=== PATIENT | male | born 1940 | race African-American/Black ===

== ENCOUNTER 2016-08-16 22:34 | Emergency (ER) | payer MEDICARE, BC ==
[2016-08-17] MEDS ORDERED: LIDOCAINE 4%/TETRACAINE 0.5%/EPI 0.18% 5 ML TOPICAL SOLN TOP ONE (01:01)
[2016-08-17] MEDS ORDERED: LIDOCAINE 1% INJ (10 MG/ML) 10 ML MDV INJ ONE (01:01)
[2016-08-17] MEDS ORDERED: ACETAMINOPHEN 325 MG TABLET PO ONE (01:29)
[2016-08-17] MEDS ORDERED: DIPH/PERTUSS(ACELL)/TETANUS VAC/PF 0.5 ML SYR (>=10YO) IM ONE (01:29)
--- NOTE | 2016-08-17 01:30 | ER Document Report ---
ED General - General Chief Complaint: Laceration Stated Complaint: LEFT HAND LACERATION Time Seen by Provider: 08/17/16 00:44 Notes: Patient is a 75-year-old male who presents after accidentally starting a body work auto trimmer will having his hand resting on the blade. He sustained lacerations to the second through fifth digits of his left hand. Denies any focal weakness, numbness, or difficulty with flexion or extension of the digits. He is right- hand dominant. Does not a dull, constant, throbbing pain to the affected area. Nothing improves or worsens the pain. He is uncertain of when his last tetanus shot was administered. Denies any history of similar injuries in the past. TRAVEL OUTSIDE OF THE [place] IN LAST 30 DAYS: No - Related Data Allergies/Adverse Reactions: No Known Allergies Allergy (Unverified 09/27/10 09:35) Past Medical History - General Information source: Patient - Social History Smoking Status: Never Smoker Frequency of alcohol use: None Drug Abuse: None Lives with: Alone Family History: Reviewed & Not Pertinent - Past Medical History Cardiac Medical History: Reports: Hx Atrial Fibrillation, Hx Hypertension - contr w/ meds Denies: Hx Coronary Artery Disease, Hx Heart Attack Pulmonary Medical History: Reports: Hx Asthma - 10 yrs ago Denies: Hx Bronchitis, Hx COPD, Hx Pneumonia, Hx Tuberculosis Neurological Medical History: Denies: Hx Cerebrovascular Accident, Hx Seizures Renal/ Medical History: Denies: Hx Peritoneal Dialysis GI Medical History: Reports: Hx Hiatal Hernia Musculoskeltal Medical History: Reports Hx Arthritis Infectious Medical History: Past Surgical History: Reports: Hx Herniorrhaphy, Hx Thyroid Surgery - Thyroid removed. Denies: Hx Pacemaker - Immunizations Hx Diphtheria, Pertussis, Tetanus Vaccination: No Review of Systems - Review of Systems Notes: Constitutional: Negative for fever. Eyes: Negative for visual changes. ENT: Negative for facial injury Cardiovascular: Negative for chest injury. Respiratory: Negative for shortness of breath. Gastrointestinal: Negative for abdominal injury. Genitourinary: Negative for genital injury Musculoskeletal: Negative for back injury. Skin: Positive for laceration/abrasions. Neurological: Negative for head injury. Physical Exam - Vital signs Vitals: Temp Pulse Resp BP Pulse Ox 97.8 F 64 20 206/94 H 97 08/16/16 22:51 08/16/16 22:51 08/16/16 22:51 08/16/16 22:51 08/16/16 22:51 Interpretation: Hypertensive Notes: PHYSICAL EXAMINATION: GENERAL: Well-appearing, well-nourished and in no acute distress. HEAD: Atraumatic, normocephalic. EYES: sclera anicteric, conjunctiva are normal. ENT: Moist mucous membranes. NECK: Normal range of motion LUNGS: Normal work of breathing HEART: 2+ radial pulses bilaterally EXTREMITIES: Full flexion and extension at the DIP, PIP and MCP of all digits of the left hand. RMU range of motion and sensory distribution is intact. NEUROLOGICAL: No focal neurological deficits. Moves all extremities spontaneously and on command. PSYCH: Normal mood, normal affect. SKIN: Warm, Dry, normal turgor, please see procedure note for laceration descriptions of the second through fifth digits of the left hand Course - Re-evaluation Re-evalutation: 08/17/16 01:29 Patient presents with lacerations over the volar aspect of the second through fifth digits but all require repair. Patient had absolutely no evidence of a neurovascular or tendon injury. Full flexion and extension at the DIP, PIP and MCP of all affected digits. No sensory loss. No additional injuries. Patient' s tetanus was updated. Wounds were cleaned and irrigated and closed. At this time will discharge with return precautions and follow-up recommendations. Verbal discharge instructions given a the bedside and opportunity for questions given. Medication warnings reviewed. Patient is in agreement with this plan and has verbalized understanding of return precautions and the need for primary care follow-up in the next 24-72 hours. - Vital Signs Vital signs: Temp Pulse Resp BP Pulse Ox 97.8 F 64 20 206/94 H 97 08/16/16 22:51 08/16/16 22:51 08/16/16 22:51 08/16/16 22:51 08/16/16 22:51 Procedures - Laceration/Wound Repair Left Hand Wound length (cm): 9 - See documentation Wound's Depth, Shape: Irregular, Contused tissue Laceration pre-procedure: Sterile PPE donned Anesthetic type: 1% Lidocaine Volume Anesthetic (mLs): 5 Wound explored: Contaminated Irrigated w/ Saline (mLs): 1,000 Wound Debrided: Moderate Wound Repaired With: Sutures Suture Size/Type: 5:0, Prolene Number of Sutures: 12 Layer Closure?: No Post-procedure wound care: Sterile dressing applied Post-procedure NV exam normal: Yes Complications: No Notes: 08/17/16 02:36 This is a highly complex laceration repair requiring a total of 40 minutes. Lacerations on the second, third, fourth and fifth digits were repaired after a local block was applied. All wounds were cleaned, irrigated and explored for retained foreign body without evidence of any retained foreign body. First laceration: 1 cm flap type laceration of the volar aspect of the second digit. Closed with 3 stitches Second laceration: 1.5 cm irregular laceration of the volar aspect of the third digit. Closed with 2 stitches Third laceration: 1 cm laceration of the volar aspect of the fourth digit. Closed with 3 stitches fourth laceration: 1.5 cm laceration of the volar aspect of the fifth digit. Closed with 4 stitches. Discharge - Discharge Clinical Impression: Laceration of multiple sites of left hand and fingers Qualifiers: Encounter type: initial encounter Qualified Code(s): S61.412A - Laceration without foreign body of left hand, initial encounter Condition: Good Additional Instructions: Please return to your primary doctor, the ED, or an urgent care in 7 days for suture removal. Return immediately if you develop spreading redness around the wound, pus from the wound, worsening pain, or a fever of >100.4. Keep the area clean and dry. Wash gently with soap and water twice daily and cover with antibiotic ointment. Referrals: KISHA LAZAR MD [Primary Care Provider] - Follow up as needed
[2016-08-17 06:17] VITALS: BP 167/92
== END 2016-08-17 03:20 | disposition home or self-care (01) ==
LOC: ER 22:34
PROC: 0HQGXZZ Repair Left Hand Skin, External Approach (ICD-10-PCS; principal; 2016-08-16)
DX: S61.211A Laceration without foreign body of left index finger without damage to nail, initial encounter (principal); S61.213A Laceration without foreign body of left middle finger without damage to nail, initial encounter; S61.215A Laceration without foreign body of left ring finger without damage to nail, initial encounter; S61.217A Laceration without foreign body of left little finger without damage to nail, initial encounter; W29.3XXA Contact with powered garden and outdoor hand tools and machinery, initial encounter; I10 Essential (primary) hypertension; J45.909 Unspecified asthma, uncomplicated; Z23 Encounter for immunization
CPT/HCPCS: 99283; 90471; 90715; 12004; A9270; J3490

== ENCOUNTER 2016-12-08 16:42 | Emergency (ER) | payer OTHER, MEDICARE ==
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
[2016-12-08] MEDS ORDERED: LIDOCAINE 5% (700 MG) TRANSDERMAL ADH..PATCH TP ONE (17:30)
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
[2016-12-08 18:45] VITALS: BP 177/76
== END 2016-12-08 18:44 | disposition home or self-care (01) ==
LOC: ER 16:42
DX: S16.1XXA Strain of muscle, fascia and tendon at neck level, initial encounter (principal); M54.5 Low back pain; M54.2 Cervicalgia; V43.52XA Car driver injured in collision with other type car in traffic accident, initial encounter; I10 Essential (primary) hypertension; M24.28 Disorder of ligament, vertebrae; I48.91 Unspecified atrial fibrillation; Z79.01 Long term (current) use of anticoagulants; J45.909 Unspecified asthma, uncomplicated
CPT/HCPCS: 70450; 72110; 72125; 99284

== ENCOUNTER 2018-05-23 11:32 | Day surgery (SDC) | payer MEDICARE, BC ==
[2018-05-18 11:45] LABS: HEMOGLOBIN 12.4 g/dL (13.5-17.0); MEAN CORPUSCULAR HEMOGLOBIN 27.5 pg (27.0-33.4); MEAN CORPUSCULAR HGB CONC 34.3 g/dL (32.0-36.0); MEAN CORPUSCULAR VOLUME 80 fl (80-97); PLATELET COUNT 213 10^3/uL (150-450); RED BLOOD COUNT 4.49 10^6/uL (4.35-5.55); WHITE BLOOD COUNT 2.8 10^3/uL (4.0-10.5)
[2018-05-18 12:06] LABS: ANION GAP 9 (5-19); BLOOD UREA NITROGEN 16 mg/dL (7-20); CALCIUM 9.4 mg/dL (8.4-10.2); CARBON DIOXIDE 30 mmol/L (22-30); CHLORIDE 101 mmol/L (98-107); GLUCOSE 83 mg/dL (75-110); SODIUM 139.9 mmol/L (137-145)
--- NOTE | 2018-05-18 13:22 | EKG REPORT ---
SEVERITY:- ABNORMAL ECG - ATRIAL-PACED COMPLEXES PROBABLE LEFT ATRIAL ABNORMALITY LEFT VENTRICULAR HYPERTROPHY : Confirmed by: Armin Garcias MD 18-May-2018 13:20:46
--- NOTE | 2018-05-21 13:18 | RADIOLOGY REPORT (SQ) ---
EXAM DESCRIPTION: CHEST PA/LATERAL COMPLETED DATE/TIME: 05/21/2018 12:37 pm REASON FOR STUDY: PRE OP COMPARISON: 05/10/2013 EXAM PARAMETERS: NUMBER OF VIEWS: two views TECHNIQUE: Digital Frontal and Lateral radiographic views of the chest acquired. RADIATION DOSE: NA LIMITATIONS: none FINDINGS: LUNGS AND PLEURA: No opacities, masses or pneumothorax. No pleural effusion. MEDIASTINUM AND HILAR STRUCTURES: No masses or contour abnormalities. HEART AND VASCULAR STRUCTURES: Heart normal size. No evidence for failure. BONES: No acute findings. HARDWARE: Pacemaker. OTHER: No other significant finding. IMPRESSION: NO SIGNIFICANT RADIOGRAPHIC FINDING IN THE CHEST. TECHNICAL DOCUMENTATION: JOB ID: [id number] [employer]- All Rights Reserved Reading location - IP/workstation name: [email or web address]
[~2018-05-23 11:32] MED LIST: CEFAZOLIN 1 GM/D5W RTU 1 GM/50 ML RTUPB IV ONE; CEFAZOLIN 1 GM/D5W RTU 1 GM/50 ML RTUPB IV PRN; LACTATED RINGERS 1000 ML IV PRN; LIDOCAINE 0.5% INJ-PF (5 MG/ML) 50 ML SDV SUBCUT PRN
[2018-05-23] MEDS ORDERED: BUPIVACAINE INJ/PF LIPOSOME/PF 266 MG/20 ML SDV ONE (12:04)
[2018-05-23] MEDS ORDERED: BUPIVACAINE HCL 0.25 % INJ/PF (2.5 MG/1 ML) 30 ML VIAL ONE (12:04)
[2018-05-23 12:11] LABS: INTERNATIONAL RATION (INR) 1.03
[2018-05-23 12:12] LABS: PARTIAL THROMBOPLASTIN TIME 31.6 SEC (23.5-35.8)
[2018-05-23] MEDS ORDERED: DEXAMETHASONE SOD PHOSPHATE INJ 4 MG/1 ML VIAL ONE (13:34)
[2018-05-23] MEDS ORDERED: FENTANYL CITRATE INJ/PF 100 MCG/2 ML AMPUL ONE ×2 (13:34→16:33)
[2018-05-23] MEDS ORDERED: ONDANSETRON HCL INJ/PF 4 MG/2 ML SDV ONE (13:34)
[2018-05-23] MEDS ORDERED: HYDROMORPHONE HCL INJ/PF 2 MG/ML AMPULE ONE (13:34)
[2018-05-23] MEDS ORDERED: PROMETHAZINE HCL INJ 25 MG/1 ML VIAL ONE (13:34)
[2018-05-23] MEDS ORDERED: MIDAZOLAM 2 MG/2 ML INJ ONE (13:34)
[2018-05-23] MEDS ORDERED: PROPOFOL INJ 200 MG/20 ML VIAL IV ONE (13:34)
[2018-05-23] MEDS ORDERED: EPHEDRINE SULFATE INJ 50 MG/1 ML AMPULE ONE (13:35)
[2018-05-23] MEDS ORDERED: GLYCOPYRROLATE 1 MG/5 ML SYRINGE ONE (13:50)
[2018-05-23] MEDS ORDERED: NEOSTIGMINE METHYLSULFATE 10 MG/10 ML VIAL ONE (13:50)
[2018-05-23] MEDS ORDERED: MORPHINE SULFATE 10 MG/ML INJ IV PRN (14:10)
[2018-05-23] MEDS ORDERED: PROMETHAZINE HCL INJ 25 MG/1 ML VIAL IV PRN ×2 (14:10)
[2018-05-23] MEDS ORDERED: DIPHENHYDRAMINE HCL 50 MG/ML VIAL IV PRN (14:10)
[2018-05-23] MEDS ORDERED: FENTANYL CITRATE INJ/PF 100 MCG/2 ML AMPUL IV PRN ×3 (14:10)
[2018-05-23] MEDS ORDERED: MEPERIDINE HCL/PF INJ 25 MG/1 ML DISP.SYRIN IV PRN (14:10)
[2018-05-23] MEDS ORDERED: OXYCODONE-ACETAMINOPHEN 5-325 MG TABLET PO PRN (15:28)
--- NOTE | 2018-05-23 15:28 | Discharge Summary ---
Discharge Summary (SDC) - Discharge Final Diagnosis: Left inguinal hernia Date of Surgery: 05/23/18 Discharge Date: 05/23/18 Condition: Good Treatment or Instructions: [facility] [address], [place] [address] Discharge Instructions: Open Abdominal Procedures (Hernia, Bowel Surgery) 1.General Information: a. DO NOT DRIVE a car or operative machinery for 1-2 weeks. b. DO NOT consume alcohol, tranquilizers, sleeping medication, or any non- prescribed medication for 24 hours unless approved by your doctor or as long as taking pain medication. c. DO NOT make important decisions or sign any important papers for the first 24 hours after surgery. d. When discharged home the same day as surgery have a responsible person with you the first night. 2.Activity Restriction: 8 weeks; a. Avoid heavy lifting (> 10-15 lbs), straining abdominal muscles and sports, mowing lawn, vacuum commercial cleaner and bending over a lot. b. Walking is important to avoid blood clots in the legs and deep breathing can prevent pneumonia. c. If it fine to go for walks, up and down steps, and ride in a car. 3.Treatment: a. You may shower 24 hours after surgery then daily is fine, but you should not bathe in a tub or go swimming for 2 weeks. You may cover the incision with gauze and tape if it is more comfortable. c. Do not use oils, powders, or lotion on your incision. 4.Medications: a. You may take prescription tablets for pain if needed, one every 6 hours ( _Tramadol_). Do not drive while taking medication c. You may resume all normal medications unless a change is specified by your doctors. 5.Diet: a. If going home the same day as surgery start with clear liquids, and if you do well then advance to normal foods low inf fat and protein. Smaller portion size may be razo the first night. 6.Notify Physician If: a. Pain is not relieved by pain medication b. Persistent nausea and vomiting c. Chills, fever (above 101) d. Persistent bleeding or swelling at the operative site e. Unable to urinate for 6-8 hours f. Increased redness, drainage, or foul smelling discharge from incision 7. Follow Up Care: a. Please call our office to schedule an appointment with your doctor for 2 weeks. In the event of any postoperative problems or questions you may call our office during business hours or the On-Call surgeon through the waffle machine operator at [facility]. [facility] [phone] [facility] (Ask for the surgeon recreation supervisor) b. I understand the instructions for my postoperative care as described above and a copy has been given to me. Witness Patient/Significant Other Date Prescriptions: Tramadol HCl [Ultram 50 mg Tablet] 50 mg PO Q6HP PRN #20 tab PRN Reason: Referrals: BRIANNA HUI MD [Primary Care Provider] - Discharge Diet: As Tolerated Discharge Activity: Balance Activity w/Rest, No Lifting Over 10 Pounds, No Lifting/Push/Pulling, Walk Frequently Report the Following to Your Physician Immediately: Nausea, Vomiting, Increase in Pain, Fever over 101 Degrees, Unusual Bleeding, Redness, Swelling, Warmth, Drainage-Foul Smelling
--- NOTE | 2018-05-23 15:30 | Operative Report ---
Operative Report PREOPERATIVE DIAGNOSIS: Left inguinal hernia, large, incarcerated POSTOPERATIVE DIAGNOSIS: Same, indirect OPERATION: Left inguinal exploration, herniorrhaphy with large Bard polypropylene mesh prosthesis insertion SURGEON: PITA GONZALEZ REFRIGERATOR GLAZIER: KENDALL ACOSTA ANESTHESIA: GA TISSUE REMOVED OR ALTERED: Cord lipoma; fragments of cremasteric muscles COMPLICATIONS: None ESTIMATED BLOOD LOSS: 30 cc INTRAOPERATIVE FINDINGS: See below PROCEDURE: The patient was seen in the preop holding area where the left inguinal area was marked. He was then taken to the main operating room and general anesthesia was induced. Arms were abducted, left inguinal area, scrotum penis and the entire genitalia were prepped and draped in sterile fashion Surgical plan and surgical timeout were conducted. The partially incarcerated left inguinal hernia was reduced with gentle pr essure. Landmarks were identified, the skin needs 2000 quarter percent Marcaine and a standard left inguinal herniorrhaphy incision was made with a knife, #10 blade. Subcutaneous tissue and Melina's fascia divided as encountered. Deeper tissue anesthetized with quarter percent Marcaine, external oblique aponeurosis opened along direction of its fibers, and the intensive the inguinal canal now a ppreciated. There was a massive hernia sac attached to a cord lipoma, and stretched cremasteric fibers. All of these structures were from each other in a deliberate, intentional fashion. The ilioinguinal nerve was visualized throughout the dissection and preserved. The cord lipoma was from the hernia sac, and was ligated at its base with a 2-0 Vicryl suture. The specimen was disposed of The hernia sac was mobilized from all surrounding structures. It was a very large mouth sac. It was opened and the contents interrogated. The large omentum was stuck down to the sigmoid colon and was taken off using cautery and blunt dissection. A small partial serosal tear was made in the anti-mesenteric side of the sigmoid colon and this was oversewed with a [id number] 3-0 Vicryl suture. There was no evidence of infection or active diverticulitis. The greater omentum was returned to the peritoneal cavity. Of note the posterior peritoneal reflection incorporated the inferior wall of the sigmoid colon. This extent of attachment was significant, and I felt that the best course of action was to simply reduce the sigmoid colon in conjunction with the omentum as a single entity. This was accomplished by first closing the ending in the peritoneal sac with a running 3-0 Vicryl suture, then reducing the sigmoid colon and retroperitoneum into the abdominal cavity. We now cleaned up the floor the inguinal canal. This was a large patulous, indirect hernia, so the defect was lateral to the inferior epigastric vessels. Remaining cremasteric fibers were we had the cord structures and vasculature surrounded with a [place] drain. We now brought onto the field a non- large Bard polypropylene mesh, deployed into the floor the inguinal canal, thereby obliterating the majority of the cavity in the central floor of the canal. It was so to surrounding tissue with 0 PDS suture. The overlay mesh was placed to formally reconstruct the floor the inguinal canal, sewing it to conjoined tendon and Poupart's ligament, with the 2 tails opening around the cord structures laterally to re-create the new internal ring. Approximately 8 sutures were used to secure the overlay mesh. Anatomic structures were returned to their buckland position. The ilioinguinal nerve was preserved throughout the entire operation. The external oblique aponeurosis was closed along direction of its fibers with 2-0 Vicryl suture, Melina's fascia and dermis with 3-0 Vicryl, skin with Dermabond glue. 20 cc of non-diluted Exparel anesthetic was deployed into the subcutaneous tissues. Patient tolerated the procedure well, extubated to recovery room in stable condition.
[2018-05-23] MEDS ORDERED: HYDRALAZINE HCL INJ/PF 20 MG/1 ML SDV ONE (16:12)
[2018-05-23 18:29] VITALS: BP 170/83
== END 2018-05-23 18:25 | disposition home or self-care (01) ==
LOC: OROUT 11:32
PROVIDERS: ATTEND Surgery
DX: K40.90 Unilateral inguinal hernia, without obstruction or gangrene, not specified as recurrent (principal); J45.909 Unspecified asthma, uncomplicated; Z86.711 Personal history of pulmonary embolism; I50.30 Unspecified diastolic (congestive) heart failure; I11.0 Hypertensive heart disease with heart failure; G47.33 Obstructive sleep apnea (adult) (pediatric); Z86.73 Personal history of transient ischemic attack (TIA), and cerebral infarction without residual deficits; I48.91 Unspecified atrial fibrillation; Z79.01 Long term (current) use of anticoagulants; Z95.0 Presence of cardiac pacemaker; Z79.899 Other long term (current) drug therapy; E89.0 Postprocedural hypothyroidism; K40.30 Unilateral inguinal hernia, with obstruction, without gangrene, not specified as recurrent
CPT/HCPCS: 93010; 93005; 36415 ×2; 84132; 85027; 85610; 85730; 80048; 71046; 49507; C1781; J2250; J0690; J3010; J0360; J2550; J2405; J2704; C9290; J3490; 830; J1100; J1170

== ENCOUNTER 2019-05-16 14:34 | Emergency (ER) | payer MEDICARE, BC ==
--- NOTE | 2019-05-16 15:10 | ER Document Report ---
HPI - HPI Time Seen by Provider: 05/16/19 14:37 Quality of pain: No pain Pain Level: Denies Context: Patient presents to the [facility] area stating that he was in the area and wanted to stop by. Patient was redirected here from the emergency department for evaluation. Patient states that he only has nasal congestion symptoms and denies any other problems. Patient denies any chest pain, shortness of breath, fever or cough. Associated Symptoms: Rhinnorhea. denies: Body/muscle aches, Chest pain, Chills, Nonproductive cough, Productive cough, Fever, Headache, Nausea, Vomiting, Sinus pain/drainage, Sore throat Exacerbated by: Denies Relieved by: Denies Similar symptoms previously: Yes Recently seen / treated by doctor: No - ROS ROS below otherwise negative: Yes - CONSTITUTIONAL Constitutional: DENIES: Fever - EENT EENT: REPORTS: Nasal Drainage-Clear. DENIES: Sore Throat, Congestion - NEURO Neurology: DENIES: Headache - CARDIOVASCULAR Cardiovascular: DENIES: Chest pain - RESPIRATORY Respiratory: DENIES: Trouble Breathing, Coughing - GASTROINTESTINAL Gastrointestinal: DENIES: Nausea, Patient vomiting, Diarrhea - DERM Skin Color: Normal Skin Problems: None Past Medical History - General Information source: Patient - Social History Smoking Status: Never Smoker Occupation: none Family History: Reviewed & Not Pertinent - Past Medical History Cardiac Medical History: Reports: Hx Atrial Fibrillation, Hx Congestive Heart Failure, Hx Hypertension Denies: Hx Coronary Artery Disease, Hx Heart Attack Pulmonary Medical History: Reports: Hx Asthma - MILD Denies: Hx Bronchitis, Hx COPD, Hx Pneumonia, Hx Tuberculosis Neurological Medical History: Denies: Hx Cerebrovascular Accident, Hx Seizures Renal/ Medical History: Denies: Hx Peritoneal Dialysis GI Medical History: Reports: Hx Hiatal Hernia Musculoskeletal Medical History: Denies Hx Arthritis Infectious Medical History: Past Surgical History: Reports: Hx Herniorrhaphy, Hx Thyroid Surgery - Thyroid removed. Denies: Hx Pacemaker - Immunizations Hx Diphtheria, Pertussis, Tetanus Vaccination: No Vertical Provider Document - CONSTITUTIONAL Agree With Documented VS: Yes - HR 60, 114/57 96% 97.0, 18 General Appearance: WD/WN, No Apparent Distress Notes: PHYSICAL EXAMINATION: GENERAL: Well-appearing and in no acute distress. HEAD: Atraumatic, normocephalic. EYES: sclera anicteric, conjunctiva are normal. ENT: nares patent. Moist mucous membranes. NECK: Normal range of motion, supple without lymphadenopathy LUNGS: CTAB and equal. No wheezes rales or rhonchi. No increased respiratory effort. HEART: Regular rate and rhythm without murmurs NEUROLOGICAL: Normal speech. PSYCH: Normal mood, normal affect. SKIN: Warm, Dry, normal turgor - INFECTION CONTROL TRAVEL OUTSIDE OF THE [place] IN LAST 30 DAYS: No Course - Re-evaluation Re-evalutation: 05/16/19 15:09 Patient does not present with any symptoms worrisome for the reid virus at this time. Patient does not meet requirements for coronavirus screening as he presently denies any cough, fever, or shortness of breath. Discussed with patient use of his allergy medicine that he presently takes to help with his nasal congestion symptoms. Patient encouraged to present to his primary doctor or the emergency department for any new or worsening symptoms at this time. Patient verbalized understanding and is agreeable with discharge plan of care at this time. Discharge - Discharge Clinical Impression: Nasal congestion Condition: Stable Disposition: HOME, SELF-CARE Additional Instructions: Return immediately for any new or worsening symptoms Followup with your primary care provider, call tomorrow to make a followup appointment Referrals: BRIANNA HUI MD [Primary Care Provider] - Follow up as needed
== END 2019-05-16 15:26 | disposition home or self-care (01) ==
LOC: EDRDC 14:34
DX: R09.81 Nasal congestion (principal); J34.89 Other specified disorders of nose and nasal sinuses; I10 Essential (primary) hypertension; J45.909 Unspecified asthma, uncomplicated
CPT/HCPCS: 99211

== ENCOUNTER 2019-06-16 11:38 | Emergency (ER) | payer MEDICARE, BC ==
--- NOTE | 2019-06-16 11:54 | ER Document Report ---
ED Medical Screen (RME) - General Chief Complaint: Hand Swelling Stated Complaint: LEFT HAND SWOLLEN Time Seen by Provider: 06/16/19 11:48 Primary Care Provider: BRIANNA HUI MD [Primary Care Provider] - Follow up as needed Mode of Arrival: Ambulatory Information source: Patient Notes: 78-year-old male presented to ED for red swollen painful left hand. He states he was trimming hedges with some clippers on Monday and his hand has become more more swollen and painful since then. He has trouble closing his hands. He states he does not have a history of gout that he knows of. Patient is alert oriented respirations regular nonlabored speaking in full sentences. There is no obvious cut but it is warm to the touch. I have greeted and performed a rapid initial assessment of this patient. A comprehensive ED assessment and evaluation of the patient, analysis of test results and completion of medical decision making process will be conducted by an additional ED providers. TRAVEL OUTSIDE OF THE [place] IN LAST 30 DAYS: No - Related Data Allergies/Adverse Reactions: No Known Allergies Allergy (Verified 06/16/19 11:52) Past Medical History - Social History Chew tobacco use (# tins/day): No Frequency of alcohol use: None Drug Abuse: None - Past Medical History Cardiac Medical History: Reports: Hx Atrial Fibrillation, Hx Congestive Heart Failure, Hx Hypertension Denies: Hx Coronary Artery Disease, Hx Heart Attack Pulmonary Medical History: Reports: Hx Asthma - MILD Denies: Hx Bronchitis, Hx COPD, Hx Pneumonia, Hx Tuberculosis Neurological Medical History: Denies: Hx Cerebrovascular Accident, Hx Seizures Renal/ Medical History: Denies: Hx Peritoneal Dialysis GI Medical History: Reports: Hx Hiatal Hernia Musculoskeltal Medical History: Denies Hx Arthritis Infectious Medical History: Past Surgical History: Reports: Hx Herniorrhaphy, Hx Thyroid Surgery - Thyroid removed. Denies: Hx Pacemaker - Immunizations Hx Diphtheria, Pertussis, Tetanus Vaccination: No Physical Exam - Vital signs Vitals: Temp Pulse Resp BP 98.7 F 74 20 148/60 H 06/16/19 11:44 06/16/19 11:44 06/16/19 11:44 06/16/19 11:44 Course - Vital Signs Vital signs: Temp Pulse Resp BP Pulse Ox 98.7 F 74 20 148/60 H 99 06/16/19 11:49 06/16/19 11:44 06/16/19 11:44 06/16/19 11:44 06/16/19 11:49 Doctor's Discharge - Discharge Referrals: BRIANNA HUI MD [Primary Care Provider] - Follow up as needed
[2019-06-16 12:16] LABS: ABSOLUTE BASOPHILS # (AUTO) 0.1 10^3/uL (0.0-0.2); ABSOLUTE EOSINOPHILS # (AUTO) 0.1 10^3/uL (0.0-0.6); ABSOLUTE LYMPHOCYTES (AUTO) 1.1 10^3/uL (0.5-4.7); ABSOLUTE MONOCYTES (AUTO) 0.7 10^3/uL (0.1-1.4); ABSOLUTE NEUT (AUTO) 5.1 10^3/uL (1.7-8.2); BASOPHILS % (AUTO) 0.8 % (0-2); HEMOGLOBIN 12.3 g/dL (13.5-17.0); LYMPHOCYTES % (AUTO) 16.2 % (13-45); MEAN CORPUSCULAR HEMOGLOBIN 27.5 pg (27.0-33.4); MEAN CORPUSCULAR HGB CONC 34.2 g/dL (32.0-36.0); MEAN CORPUSCULAR VOLUME 81 fl (80-97); MONOCYTES % (AUTO) 9.4 % (3-13); PLATELET COUNT 250 10^3/uL (150-450); RED BLOOD COUNT 4.47 10^6/uL (4.35-5.55); RED CELL DISTRIBUTION WIDTH 13.6 % (11.5-14.0); SEGMENTED NEUTROPHILS % (AUTO) 72.6 % (42-78); TOTAL CELLS COUNTED % (AUTO) 100 %
--- NOTE | 2019-06-16 12:17 | RADIOLOGY REPORT (SQ) ---
EXAM DESCRIPTION: HAND LEFT 3 VIEWS IMAGES COMPLETED DATE/TIME: 06/16/2019 12:04 pm REASON FOR STUDY: Pain swelling redness left hand COMPARISON: None. NUMBER OF VIEWS: Three views left hand LIMITATIONS: None. FINDINGS: No fracture. 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 Chondrocalcinosis in the TFCC. Soft tissue swelling over the dorsal hand. No radiopaque foreign body or gas. OTHER: No other significant finding. IMPRESSION: Soft tissue swelling without radiopaque foreign body or fracture. Osteoarthritic change s otherwise. TECHNICAL DOCUMENTATION: JOB ID: [id number] Reading location - IP/workstation name: [email or web address]
[2019-06-16 12:34] LABS: ALBUMIN 4.1 g/dL (3.5-5.0); ALKALINE PHOSPHATASE 57 U/L (38-126); ANION GAP 8 (5-19); ASPARTATE AMINO TRANSFERASE 20 U/L (17-59); BILIRUBIN,TOTAL 0.6 mg/dL (0.2-1.3); BLOOD UREA NITROGEN 25 mg/dL (7-20); CALCIUM 9.5 mg/dL (8.4-10.2); CARBON DIOXIDE 31 mmol/L (22-30); CHLORIDE 98 mmol/L (98-107); GLUCOSE 183 mg/dL (75-110); POTASSIUM 3.8 mmol/L (3.6-5.0); TOTAL PROTEIN 7.2 g/dL (6.3-8.2); URIC ACID 4.6 mg/dL (3.5-8.5)
--- NOTE | 2019-06-16 13:26 | ER Document Report ---
Entered by JAYSON ALCALA SCRIBE 06/16/19 1213 Acting as scribe for:RAYMUNDO PRESTON MD ED Hand/Wrist Injury - General Chief Complaint: Hand Swelling Stated Complaint: LEFT HAND SWOLLEN Time Seen by Provider: 06/16/19 11:48 Primary Care Provider: BRIANNA HUI MD [Primary Care Provider] - Follow up as needed Mode of Arrival: Ambulatory Information source: Patient, [facility] [place] [place] Records Notes: This 78 year old male patient presents to the emergency department today with complaints of left hand swelling for the last four days. Patient reports on Monday06/10/2019, he was trying to cut up some limb branches that were about 1.5 to 2 cm in diameter. He was using a hedge tremor type apparatus and it required considerable amount of pressure to pull the handles outward to close the blades and cut through the limbs. He reports that he developed a pain in the left wrist and hand, that lasted only briefly so he did not think anything of it. The next morning when he got up the left wrist and hand was grossly swollen and painful. Patient states he has had a slight pain in his hand the last few days that well come/go. Patient denies a history of gout. TRAVEL OUTSIDE OF THE [place] IN LAST 30 DAYS: No - Related Data Allergies/Adverse Reactions: No Known Allergies Allergy (Verified 06/16/19 11:52) Past Medical History - General Information source: Patient, [facility] Records - Social History Smoking Status: Never Smoker Cigarette use (# per day): No Chew tobacco use (# tins/day): No Smoking Education Provided: No Frequency of alcohol use: None Drug Abuse: None Occupation: Retired Lives with: Family Family History: Reviewed & Not Pertinent Patient has homicidal ideation: No - Past Medical History Cardiac Medical History: Reports: Hx Atrial Fibrillation, Hx Congestive Heart Failure, Hx Hypertension Pulmonary Medical History: Reports: Hx Asthma - MILD GI Medical History: Reports: Hx Hiatal Hernia Musculoskeletal Medical History: Infectious Medical History: Past Surgical History: Reports: Hx Inguinal Hernia - Left inguinal hernia, Hx Orthopedic Surgery - Left shoulder surgery about 1999, Hx Pacemaker, Hx Thyroid Surgery - Thyroid removed for a thyroid tumor - Immunizations Hx Diphtheria, Pertussis, Tetanus Vaccination: No Review of Systems - Review of Systems Constitutional: No symptoms reported EENT: No symptoms reported Cardiovascular: No symptoms reported Respiratory: No symptoms reported Gastrointestinal: No symptoms reported Genitourinary: No symptoms reported Male Genitourinary: No symptoms reported Musculoskeletal: See HPI, Other - left hand swelling Skin: No symptoms reported Hematologic/Lymphatic: No symptoms reported Neurological/Psychological: No symptoms reported -: Yes All other systems reviewed and negative Physical Exam - Vital signs Vitals: Temp Pulse Resp BP 98.7 F 74 20 148/60 H 06/16/19 11:44 06/16/19 11:44 06/16/19 11:44 06/16/19 11:44 - General General appearance: Appears well In distress: None - HEENT Head: Normocephalic, Atraumatic Eyes: Normal - Respiratory Respiratory status: No respiratory distress - Cardiovascular Rhythm: Regular - Abdominal Inspection: Normal Distension: No distension Bowel sounds: Normal - Extremities General upper extremity: Other General lower extremity: Normal inspection, Nontender, Normal ROM Hand: Other - Left hand is grossly swollen from the wrist to the MCP joints. The hand is soft and not hot to the touch. Most tenderness is over the right wrist where the swelling is firm dorsal and ventral. - Neurological Neuro grossly intact: Yes Cognition: Normal Orientation: AAOx4 - Psychological Associated symptoms: Normal affect, Normal mood - Skin Skin Temperature: Warm Skin Moisture: Dry Skin Color: Normal Course - Re-evaluation Re-evalutation: 06/16/19 13:44 The x-ray shows soft tissue swelling but no bony abnormalities. The white blood cell count is not elevated and does not have a shift that would suggest infection. The uric acid is 4.6, and the CRP is 35.3 The history and examination are quite suspicious for gout. His blood sugar is 183, he does not have a history of diabetes. 06/16/19 14:22 I did discuss the case at length with Dr. Lazar. I will treat him as a suspected gout attack with Shayne single dose of prednisone 60 mg and colchicine 1.2 mg, and he will see him in the office tomorrow at 11 AM. At that time he can check his sugars and decide how to continue to manage this injury. - Vital Signs Vital signs: Temp Pulse Resp BP Pulse Ox 98.7 F 74 20 148/60 H 99 06/16/19 11:49 06/16/19 11:44 06/16/19 11:44 06/16/19 11:44 06/16/19 11:49 - Laboratory Result Diagrams: 06/16/19 12:00 06/16/19 12:00 Laboratory results interpreted by me: 06/16/19 06/16/19 06/16/19 12:00 12:00 12:00 Hgb 12.3 L Hct 36.0 L Carbon Dioxide 31 H BUN 25 H Glucose 183 H C-Reactive Protein 35.3 H - Diagnostic Test Radiology reviewed: Image reviewed, Reports reviewed - X-ray of the left hand and wrist shows soft tissue swelling with osteoarthritis, no other abnormalities. Discharge - Discharge Clinical Impression: Swelling of left wrist, Hyperglycemia Gout attack Qualifiers: Gout site: hand Gout etiology: unspecified cause Laterality: left Qualified Code(s): M10.9 - Gout, unspecified Condition: Stable Disposition: HOME, SELF-CARE Additional Instructions: Gout: You have been diagnosed as possibly having gout. Gout is a problem caused by an excess of uric acid, a natural chemical found in the body. The cause of this disease is unknown. Gout arthritis occurs when crystals of uric acid form in the joints. The big toe is the most common joint involved, but any joint can become affected. Persons with gout may also form uric acid kidney stones, resulting in flank pain and blood in the urine. Nodules of uric acid may form under the skin. The first step of treatment is to decrease the inflammation in the joint with antiinflammatory medication. Medication to lower the uric acid level in the blood may then be prescribed. This medication should be taken regularly, as any sudden change in dosage may provoke an attack of gout. Some foods, such as red meat, can provoke an attack in some gout sufferers. Call the doctor if new symptoms arise, or if you do not improve. You were given prednisone and colchicine in the emergency room. These medications will calm down the inflammation in your wrist and hand. Use the splint to protect the wrist so it does not move. Elevate your hand above your heart all the time in order to help reduce the swelling. Take the pain medication as dispensed this evening if needed. Follow-up with Dr. Lazar in the office tomorrow just before 11 AM. RETURN TO THE EMERGENCY ROOM IF ANY NEW OR WORSENING SYMPTOMS. Referrals: KISHA LAZAR MD [ACTIVE STAFF] - 06/17/19 11:00 am I personally performed the services described in the documentation, reviewed and edited the documentation which was dictated to the scribe in my presence, and it accurately records my words and actions.
[2019-06-16] MEDS ORDERED: PREDNISONE 20 MG TABLET PO ONE (13:52)
[2019-06-16] MEDS ORDERED: HYDROCODONE/ACETAMINOPHEN 5-325 MG (6 TAB/ER DISP) PO PRN (14:20)
[2019-06-16] MEDS ORDERED: COLCHICINE 0.6 MG TABLET PO ONE (14:20)
[2019-06-16 14:55] VITALS: BP 133/67
== END 2019-06-16 14:56 | disposition home or self-care (01) ==
LOC: ER 11:38
DX: M10.9 Gout, unspecified (principal); M19.042 Primary osteoarthritis, left hand; R73.9 Hyperglycemia, unspecified; I10 Essential (primary) hypertension; J45.909 Unspecified asthma, uncomplicated
CPT/HCPCS: 99283; 36415; 84550; 85025; 86140; 80053; 73130; A9270 ×3; J7512

== ENCOUNTER → 2019-11-07 | Outpatient (CLI) | payer MEDICARE, BC ==
--- NOTE | 2019-11-07 14:07 | RADIOLOGY REPORT (SQ) ---
EXAM DESCRIPTION: CHEST PA/LATERAL IMAGES COMPLETED DATE/TIME: 11/07/2019 1:46 pm REASON FOR STUDY: SHORTNESS OF BREATH COMPARISON: 05/21/2018 EXAM PARAMETERS: NUMBER OF VIEWS: two views TECHNIQUE: Digital Frontal and Lateral radiographic views of the chest acquired. RADIATION DOSE: NA LIMITATIONS: none FINDINGS: LUNGS AND PLEURA: No opacities, masses or pneumothorax. No pleural effusion. MEDIASTINUM AND HILAR STRUCTURES: No masses or contour abnormalities. HEART AND VASCULAR STRUCTURES: Heart normal size. No evidence for failure. BONES: No acute findings. HARDWARE: Pacemaker. OTHER: No other significant finding. IMPRESSION: NO SIGNIFICANT RADIOGRAPHIC FINDING IN THE CHEST. TECHNICAL DOCUMENTATION: JOB ID: [id number] 2010 [employer]- All Rights Reserved Reading location - IP/workstation name: [email or web address]
== END ==
LOC: OD 12:10
PROVIDERS: ATTEND Internal Medicine
DX: R06.02 Shortness of breath (principal)
CPT/HCPCS: 71046

== ENCOUNTER → 2020-01-31 | Outpatient (CLI) | payer MEDICARE, BC ==
[2020-01-31 13:18] LABS: ANION GAP 8 (5-19); BLOOD UREA NITROGEN 19 mg/dL (7-20); CALCIUM 9.4 mg/dL (8.4-10.2); CARBON DIOXIDE 31 mmol/L (22-30); CHLORIDE 99 mmol/L (98-107); GLUCOSE 115 mg/dL (75-110); POTASSIUM 3.8 mmol/L (3.6-5.0)
== END ==
LOC: OD 11:38
PROVIDERS: ATTEND Physician Assistant
DX: I50.30 Unspecified diastolic (congestive) heart failure (principal)
CPT/HCPCS: 36415; 80048

== ENCOUNTER 2020-02-24 11:55 | Inpatient (IN) | payer MEDICARE, BC ==
[2020-02-24] MEDS ORDERED: DEXAMETHASONE SOD PHOS INJ 10 MG/1 ML VIAL IV ONE (12:33)
[2020-02-24 12:39] LABS: ABSOLUTE LYMPHOCYTES (AUTO) 0.6 10^3/uL (0.5-4.7); ABSOLUTE MONOCYTES (AUTO) 0.6 10^3/uL (0.1-1.4); ABSOLUTE NEUT (AUTO) 6.3 10^3/uL (1.7-8.2); BASOPHILS % (AUTO) 0.4 % (0-2); HEMATOCRIT 33.9 % (37.9-51.0); HEMOGLOBIN 11.5 g/dL (13.5-17.0); LYMPHOCYTES % (AUTO) 7.7 % (13-45); MEAN CORPUSCULAR HEMOGLOBIN 26.7 pg (27.0-33.4); MEAN CORPUSCULAR HGB CONC 34.1 g/dL (32.0-36.0); MEAN CORPUSCULAR VOLUME 78 fl (80-97); MONOCYTES % (AUTO) 8.3 % (3-13); PLATELET COUNT 288 10^3/uL (150-450); RED BLOOD COUNT 4.33 10^6/uL (4.35-5.55); RED CELL DISTRIBUTION WIDTH 13.5 % (11.5-14.0); SEGMENTED NEUTROPHILS % (AUTO) 83.6 % (42-78); TOTAL CELLS COUNTED % (AUTO) 100 %; WHITE BLOOD COUNT 7.5 10^3/uL (4.0-10.5)
[2020-02-24 12:46] LABS: VENOUS BLOOD HCO3 23.3 mmol/L (20-32); VENOUS BLOOD PCO2 33.7 mmHg (35-63); VENOUS BLOOD PH 7.46 (7.30-7.42)
[2020-02-24 12:50] LABS: ALBUMIN 3.1 g/dL (3.5-5.0); ALKALINE PHOSPHATASE 46 U/L (38-126); ANION GAP 13 (5-19); ASPARTATE AMINO TRANSFERASE 55 U/L (17-59); BILIRUBIN,DIRECT 0.4 mg/dL (0.0-0.4); BILIRUBIN,TOTAL 0.9 mg/dL (0.2-1.3); BLOOD UREA NITROGEN 86 mg/dL (7-20); CALCIUM 8.6 mg/dL (8.4-10.2); CARBON DIOXIDE 26 mmol/L (22-30); CHLORIDE 104 mmol/L (98-107); POTASSIUM 4.5 mmol/L (3.6-5.0); TOTAL PROTEIN 6.1 g/dL (6.3-8.2)
[2020-02-24 12:55] LABS: INTERNATIONAL RATION (INR) 2.41; PROTHROMBIN TIME 26.2 SEC (11.4-15.4)
[2020-02-24 13:01] LABS: FIBRINOGEN 941 mg/dL (209-497)
[2020-02-24 13:05] LABS: GLUCOSE 412 mg/dL (75-110)
[2020-02-24] MEDS ORDERED: INSULIN REG, HUMAN 100 UNIT/ML 3 ML VIAL (PYX) IV ONE (13:26)
[2020-02-24] MEDS ORDERED: NORMAL SALINE 1000 ML 1,000 ML IV ONE (13:26)
--- NOTE | 2020-02-24 13:43 | RADIOLOGY REPORT (SQ) ---
EXAM DESCRIPTION: CHEST SINGLE VIEW IMAGES COMPLETED DATE/TIME: 02/24/2020 1:26 pm REASON FOR STUDY: SOB COMPARISON: PA and lateral views of the chest from 11/07/2019. EXAM PARAMETERS: NUMBER OF VIEWS: One view. TECHNIQUE: An AP view of the chest was obtained. RADIATION DOSE: NA LIMITATIONS: None. FINDINGS: LUNGS AND PLEURA: Bilateral basilar predominant patchy parenchymal opacities. The costoph renic sulci are blunted. There is no pneumothorax. MEDIASTINUM AND HILAR STRUCTURES: No mediastinal or hilar contour abnormality. HEART AND VASCULAR STRUCTURES: The cardiac silhouette and pulmonary vasculature are within normal lin its. BONES: Suture ankles in the proximal right humerus. There is superior subluxation of the humeral hea ds with effacement of the acromiohumeral intervals - correlate for chronic rotator cuff tears. There is osteoarthrosis of the acromioclavicular joints. HARDWARE: Intact left subclavian vein approach transvenous pacemaker. OTHER: Surgical clips that project above the level of the thoracic inlet to the left of midline. IMPRESSION: Bilateral basilar predominant patchy parenchymal opacities and likely small bilateral pl eural effusions. Differential considerations include interstitial edema/ volume overload and multifo souleymane pneumonia. TECHNICAL DOCUMENTATION: JOB ID: [id number] 2010 [employer]- All Rights Reserved Reading location - IP/workstation name: [email or web address]
[2020-02-24] MEDS ORDERED: NORMAL SALINE 1000 ML 1,000 ML IV PRN (13:52)
[2020-02-24] MEDS ORDERED: DEXTROSE 50%-WATER 25 GM/50 ML DISP.SYRIN IV PRN ×2 (14:01)
[2020-02-24] MEDS ORDERED: DEXTROSE 40% GEL 15 GM TUBE PO PRN ×2 (14:01)
[2020-02-24] MEDS ORDERED: GLUCAGON,HUMAN RECOMB 1 MG INJ IM PRN (14:01)
[2020-02-24 14:07] LABS: C-REACTIVE PROTEIN 295.6 mg/L (<10.0)
--- NOTE | 2020-02-24 14:15 | ER Document Report ---
ED General - General Chief Complaint: Shortness Of Breath Stated Complaint: SHORTNESS OF BREATH Time Seen by Provider: 02/24/20 12:03 Primary Care Provider: REJI CARPENTER PA-C [Primary Care Provider] - Follow up as needed Mode of Arrival: Medic Information source: Patient, Emergency Med Personnel TRAVEL OUTSIDE OF THE [place] IN LAST 30 DAYS: No - HPI Notes: Patient comes in complaining of shortness of breath and weakness. Patient has a recent positive Covid test per his outpatient provider. He complains of shortness of breath now that is constant and severe. Is worse with exertion and better with rest. Patient does also have a cough. He has been feeling weak with significant malaise. No known fevers. No vomiting or diarrhea. - Related Data Allergies/Adverse Reactions: No Known Allergies Allergy (Verified 06/16/19 11:52) Home Medications: HCTZ, Certirizine HCL, Montelukast,Dexamethasone, Eliquis, Metoprolol, Spironolactone,Levofloxacin,Amlodipine, Albuterol Inhaler, Nitro Sublingual Past Medical History - General Information source: Patient - Social History Smoking Status: Never Smoker Chew tobacco use (# tins/day): No Frequency of alcohol use: None Drug Abuse: None Family History: Reviewed & Not Pertinent Patient has homicidal ideation: No - Past Medical History Cardiac Medical History: Reports: Hx Atrial Fibrillation, Hx Congestive Heart Failure, Hx Hypertension Denies: Hx Coronary Artery Disease, Hx Heart Attack Pulmonary Medical History: Reports: Hx Asthma - MILD Denies: Hx Bronchitis, Hx COPD, Hx Pneumonia, Hx Tuberculosis Neurological Medical History: Denies: Hx Cerebrovascular Accident, Hx Seizures Renal/ Medical History: Denies: Hx Peritoneal Dialysis GI Medical History: Reports: Hx Hiatal Hernia Musculoskeletal Medical History: Denies Hx Arthritis Infectious Medical History: Past Surgical History: Reports: Hx Herniorrhaphy - left inguinal, Hx Inguinal Hernia - Left inguinal hernia, Hx Orthopedic Surgery - Left shoulder surgery about 1999, Hx Pacemaker, Hx Thyroid Surgery - Thyroid removed for a thyroid tumor - Immunizations Hx Diphtheria, Pertussis, Tetanus Vaccination: No Review of Systems - Review of Systems Constitutional: Malaise, Weakness Cardiovascular: denies: Chest pain, Palpitations Respiratory: Cough, Short of breath -: Yes All other systems reviewed and negative Physical Exam - Vital signs Vitals: Temp 97.7 F 02/24/20 11:56 Interpretation: Hypoxic - General General appearance: Alert In distress: None - HEENT Head: Normocephalic, Atraumatic Eyes: Normal Pupils: PERRL - Respiratory Respiratory status: No respiratory distress Breath sounds: Normal - Cardiovascular Rhythm: Regular Notes: No JVD - Abdominal Inspection: Normal Distension: No distension - Back Back: Normal. No: Scoliosis - Extremities General upper extremity: Normal inspection, Normal color General lower extremity: Normal inspection, Normal color - Neurological Cognition: Confused Orientation: Disoriented to time [place] Coma Scale Eye Opening: Spontaneous [place] Coma Scale Verbal: Confused [place] Coma Scale Motor: Obeys Commands Teddy Coma Scale Total: 14 Speech: Normal Sensory: Normal - Psychological Associated symptoms: Normal affect, Normal mood - Skin Skin Temperature: Warm Skin Moisture: Dry Skin Color: Normal Course - Re-evaluation Re-evalutation: 02/24/20 14:14 Patient presents from home with history of being positive for Covid and now having shortness of breath. Patient is hypoxic on room air. He is approximately 95% on 4 L. Patient's inflammatory markers are also all elevated. In addition his sugar is elevated most likely secondary to the outpatient steroid use. Therefore I have treated him with insulin. Patient also has significantly elevated creatinine compared to baseline and therefore have given a liter of IV fluids. - Vital Signs Vital signs: Temp Pulse Resp BP Pulse Ox 97.7 F 92 02/24/20 11:56 02/24/20 11:57 - Laboratory Results Result Diagrams: 02/24/20 12:18 02/24/20 12:18 Laboratory Results Interpreted: 02/24/20 02/24/20 02/24/20 12:18 12:18 12:18 RBC 4.33 L Hgb 11.5 L Hct 33.9 L MCV 78 L MCH 26.7 L Lymph % (Auto) 7.7 L Seg Neutrophils % 83.6 H PT Fibrinogen D-Dimer VBG pH 7.46 H VBG pCO2 33.7 L BUN 86 H Creatinine 3.43 H Est GFR ( Amer) 21 L Est GFR (MDRD) Non-Af 17 L Glucose 412 H* Lactate Dehydrogenase C-Reactive Protein Total Protein 6.1 L Albumin 3.1 L 02/24/20 02/24/20 02/24/20 12:18 12:18 12:18 RBC Hgb Hct MCV MCH Lymph % (Auto) Seg Neutrophils % PT 26.2 H Fibrinogen 941 H D-Dimer 1.05 H VBG pH VBG pCO2 BUN Creatinine Est GFR ( Amer) Est GFR (MDRD) Non-Af Glucose Lactate Dehydrogenase 427 H C-Reactive Protein 295.6 H Total Protein Albumin Critical Laboratory Results Reviewed: Yes Attending or Supervising Physician who Reviewed Labs: ALCIRA ALTAMIRANO - Radiology Results Critical Radiology Results Reviewed: Yes Attending or Supervising Physician who Reviewed Radiology: ALCIRA ALTAMIRANO - EKG Interpretation by Me Rate: Normal - 90 Rhythm: Other [place]/QRS: Left axis deviation Critical Care Note - Critical Care Note Total time excluding time spent on procedures (mins): 50 Comments: Approximately 50 minutes of critical care time were spent on this patient with hypoxic Covid pneumonia. In addition patient is hyperglycemic with acute renal failure. This time was spent reviewing old records. It is spent talking with workforce management consultant. It was spent reviewing labs and imaging. It was spent doing reassessments. Discharge - Discharge Clinical Impression: Pneumonia due to COVID-19 virus, Hypoxia, Hyperglycemia Acute renal failure (ARF) Qualifiers: Acute renal failure type: unspecified Qualified Code(s): N17.9 - Acute kidney failure, unspecified Condition: Critical Disposition: ADMITTED INPATIENT Admitting Provider: [facility] Unit Admitted: IMCU Referrals: REJI CARPENTER PA-C [Primary Care Provider] - Follow up as needed
[2020-02-24] MEDS ORDERED: CEFTRIAXONE 1 GM/D5W RTU 1 GM/50 ML RTUPB IV SCH (14:30)
[2020-02-24 15:16] LABS: ARTERIAL BLOOD BASE EXCESS 2.7 mmol/L; ARTERIAL BLOOD HCO3 26.9 mmol/L (20-24); ARTERIAL BLOOD O2 SATURATION 93.1 % (94-98); ARTERIAL BLOOD PCO2 39.8 mmHg (35-45); ARTERIAL BLOOD PH 7.45 (7.35-7.45); ARTERIAL BLOOD PO2 63.2 mmHg (80-100); ARTERIAL BLOOD TOTAL CO2 28.1 mmol/L (23-27)
[2020-02-24 15:19] LABS: ARTERIAL BLOOD FIO2 5L
[2020-02-24 15:37] LABS: A TYPE INFLUENZA AG NEGATIVE (NEGATIVE); B INFLUENZA AG NEGATIVE (NEGATIVE)
[2020-02-24] MEDS: AZITHROMYCIN 500 MG in DEXTROSE 5%-WATER 250 ML IV SCH (15:38)
[2020-02-24] MEDS ORDERED: SPIRONOLACTONE 50 MG PO SCH (16:00)
[2020-02-24] MEDS: CHOLECALCIFEROL (D3) 1,000 UNIT (25 MCG) TABLET PO SCH (17:21)
[2020-02-24] MEDS: SPIRONOLACTONE 25 MG TABLET PO SCH (17:28)
[2020-02-24] MEDS: ZINC SULFATE 220 MG CAPSULE PO SCH (17:28)
[2020-02-24] MEDS: MONTELUKAST SODIUM 10 MG TABLET PO SCH (17:29)
[2020-02-24] MEDS: AMLODIPINE BESYLATE 10 MG TABLET PO SCH (17:29)
[2020-02-24] MEDS: ASCORBIC ACID 500 MG TABLET PO SCH ×2 (17:29→18:57)
[2020-02-24] MEDS: METOPROLOL SUCCINATE 50 MG TAB.SR.24H PO SCH (17:29)
[2020-02-24] MEDS: APIXABAN 5 MG TABLET PO SCH ×2 (17:36→18:57)
--- NOTE | 2020-02-24 17:59 | EKG REPORT ---
SEVERITY:- ABNORMAL ECG - VENTRICULAR-PACED RHYTHM PACEMAKER IN VAT MODE : Confirmed by: Radha Elliott MD 24-Feb-2020 17:59:02
[2020-02-24] MEDS: NORMAL SALINE 100 ML with INSULIN REGULAR, HUMAN 100 UNIT IV PRN ×4 (18:07→19:03)
--- NOTE | 2020-02-24 20:19 | PDOC H&P ---
History of Present Illness Admission Date/PCP: 02/24/20 14:50 KISHA LAZAR MD History of Present Illness: VERONICA HELM is a 79 year old male, He has a history of paroxysmal atrial fibrillation, sick sinus syndrome status post pacemaker implantation, he had a positive SARS-CoV-2 test last week outpatient in the office, he was started on dexamethasone.He was advised to go to emergency room if he develops shortness of breath, he came to the emergency room today for evaluation of shortness of breath. In the emergency room a chest x-ray was done that demonstrated diffuse bilateral infiltrate, the arterial blood gas that was done demonstrated hypoxemia,ABG on FiO2 5 L, pH 7.45, PO2 33.5, PCO2 39.8, HCO3 26.9.He was also found to have hyperglycemia, serum glucose was over 400 Past Medical History Cardiac Medical History: Reports: Atrial Fibrillation, Hypertension Pulmonary Medical History: Reports: Asthma - MILD GI Medical History: Reports: Hiatal Hernia Musculoskeltal Medical History: Denies: Arthritis Psychiatric Medical History: Denies: Depression Hematology: Reports: Sickle Cell Disease Denies: Anemia Past Surgical History Past Surgical History: Reports: Herniorrhaphy - left inguinal, Orthopedic Surgery - Left shoulder surgery about 1999, Pacemaker Social History Smoking Status: Former Smoker Electronic Cigarette use?: No Frequency of Alcohol Use: None Hx Recreational Drug Use: No Hx Prescription Drug Abuse: No Family History Family History: Reviewed & Not Pertinent Parental Family History Reviewed: Yes Children Family History Reviewed: Yes Sibling(s) Family History Reviewed.: Yes Medication/Allergy Home Medications: Spironolactone [Aldactone] 50 mg PO DAILY 05/11/13 Montelukast Sodium [Singulair] 10 mg PO DAILY 05/18/18 Amlodipine Besylate [Norvasc 10 mg Tablet] 10 mg PO DAILY 02/24/20 Dexamethasone 6 mg PO DAILY 02/24/20 Levofloxacin [Levaquin 750 mg Tablet] 750 mg PO DAILY 02/24/20 Metoprolol Succinate [Toprol Xl 50 mg Tab.sr] 50 mg PO DAILY 02/24/20 Allergies/Adverse Reactions: No Known Allergies Allergy (Verified 06/16/19 11:52) Review of Systems Constitutional: ABSENT: chills, fever(s), headache(s), weight gain, weight loss Eyes: ABSENT: visual disturbances Ears: ABSENT: hearing changes Cardiovascular: PRESENT: dyspnea on exertion Respiratory: PRESENT: cough, dyspnea Gastrointestinal: ABSENT: abdominal pain, constipation, diarrhea, hematemesis, hematochezia, nausea, vomiting Genitourinary: ABSENT: dysuria, hematuria Musculoskeletal: ABSENT: joint swelling Integumentary: ABSENT: rash, wounds Neurological: ABSENT: abnormal gait, abnormal speech, confusion, dizziness, focal weakness, syncope Psychiatric: ABSENT: anxiety, depression, homidical ideation, suicidal ideation Endocrine: ABSENT: cold intolerance, heat intolerance, menstrual abnormalities, polydipsia, polyuria Hematologic/Lymphatic: ABSENT: easy bleeding, easy bruising, lymphadenopathy Physical Exam Vital Signs: Temp Pulse Resp BP Pulse Ox 97.5 F 71 33 H 107/63 94 02/24/20 17:30 02/24/20 19:00 02/24/20 19:15 02/24/20 17:30 02/24/20 19:15 Intake & Output 02/23/20 02/24/20 02/25/20 06:59 06:59 06:59 Intake Total 261 Output Total 300 Balance -39 Weight 64.9 kg General appearance: PRESENT: other - Patient is alert oriented somewhat in distress Head exam: PRESENT: atraumatic, normocephalic Eye exam: PRESENT: PERRLA Ear exam: PRESENT: normal external ear exam Respiratory exam: PRESENT: wheezes Cardiovascular exam: PRESENT: RRR, +S1, +S2 Pulses: PRESENT: normal dorsalis pedis pul, +2 pedal pulses bilateral Vascular exam: PRESENT: normal capillary refill GI/Abdominal exam: PRESENT: normal bowel sounds, soft Rectal exam: PRESENT: deferred Neurological exam: PRESENT: alert, CN II-XII grossly intact Psychiatric exam: PRESENT: appropriate affect, normal mood Skin exam: PRESENT: dry, intact, warm Results Laboratory Results: 02/24/20 12:18 02/24/20 12:18 02/24/20 02/24/20 02/24/20 12:18 12:18 12:18 WBC 7.5 RBC 4.33 L Hgb 11.5 L Hct 33.9 L MCV 78 L MCH 26.7 L MCHC 34.1 RDW 13.5 Plt Count 288 Seg Neutrophils % 83.6 H Carbonic Acid HCO3/H2CO3 Ratio ABG pH ABG pCO2 ABG pO2 ABG HCO3 ABG O2 Saturation ABG Base Excess VBG pH 7.46 H VBG pCO2 33.7 L VBG HCO3 23.3 VBG Base Excess 0 FiO2 Sodium 142.8 Potassium 4.5 Chloride 104 Carbon Dioxide 26 Anion Gap 13 BUN 86 H Creatinine 3.43 H Est GFR ( Amer) 21 L Glucose 412 H* Calcium 8.6 Ferritin Total Bilirubin 0.9 AST 55 Alkaline Phosphatase 46 C-Reactive Protein Total Protein 6.1 L Albumin 3.1 L Blood Type 02/24/20 02/24/20 02/24/20 12:18 14:50 14:53 WBC RBC Hgb Hct MCV MCH MCHC RDW Plt Count Seg Neutrophils % Carbonic Acid 1.20 HCO3/H2CO3 Ratio 22:1 ABG pH 7.45 ABG pCO2 39.8 ABG pO2 63.2 L ABG HCO3 26.9 H ABG O2 Saturation 93.1 L ABG Base Excess 2.7 VBG pH VBG pCO2 VBG HCO3 VBG Base Excess FiO2 5L Sodium Potassium Chloride Carbon Dioxide Anion Gap BUN Creatinine Est GFR ( Amer) Glucose Calcium Ferritin 2050.00 H Total Bilirubin AST Alkaline Phosphatase C-Reactive Protein 295.6 H Total Protein Albumin Blood Type O POSITIVE 02/24/20 02/24/20 12:18 12:18 Creatine Kinase 577 H Troponin I 0.190 Impressions: Chest X-Ray 02/24/20 11:57 IMPRESSION: Bilateral basilar predominant patchy parenchymal opacities and likely small bilateral pleural effusions. Differential considerations include interstitial edema/ volume overload and multifocal pneumonia. Assessment & Plan - Diagnosis (1) Acute hypoxemic respiratory failure Is this a current diagnosis for this admission?: Yes Plan: Start supplementary oxygen,Via nasal cannula (2) Pneumonia Qualifiers: Pneumonia type: due to unspecified organism Laterality: bilateral Lung location: unspecified part of lung Qualified Code(s): J18.9 - Pneumonia, unspecified organism Is this a current diagnosis for this admission?: Yes Plan: Cannot completely rule out bacterial pneumonia, start IV antibiotic (3) Hyperosmolar hyperglycemic state (HHS) Is this a current diagnosis for this admission?: Yes Plan: Start insulin drip with normal saline (4) Pneumonia due to COVID-19 virus Is this a current diagnosis for this admission?: Yes Plan: Start remdesivir, IV dexamethasone - Time Time Spent: Greater than 70 Minutes Critical Time spent with patient: 35 or more minutes Medications reviewed and adjusted accordingly: Yes Anticipated Discharge Disposition: Home, Self Care Anticipated Discharge Timeframe: within 72 hours - Inpatient Certification Based on my medical assessment, after consideration of the patient's comorbidities, presenting symptoms, or acuity I expect that the services needed warrant INPATIENT care.: Yes I certify that my determination is in accordance with my understanding of Medicare's requirements for reasonable and necessary INPATIENT services [42 CFR 412.3e].: Yes
[2020-02-24] MEDS ORDERED: REMDESIVIR 200 MG in NORMAL SALINE 250 ML IV ONE (22:00)
[2020-02-24 22:13] LABS: ANION GAP 8 (5-19); BLOOD UREA NITROGEN 78 mg/dL (7-20); CALCIUM 8.6 mg/dL (8.4-10.2); CARBON DIOXIDE 30 mmol/L (22-30); CHLORIDE 105 mmol/L (98-107); GLUCOSE 343 mg/dL (75-110); POTASSIUM 3.9 mmol/L (3.6-5.0)
[2020-02-24] MEDS: CEFTRIAXONE SODIUM 1,000 MG in DEXTROSE 5%-WATER 50 ML IV SCH (22:21)
[2020-02-24 22:22] LABS: CREATINE KINASE MB 3.49 ng/mL (<4.55); TROPONIN I 0.081 ng/mL
[2020-02-25 01:17] LABS: ANION GAP 11 (5-19); BLOOD UREA NITROGEN 77 mg/dL (7-20); CALCIUM 8.8 mg/dL (8.4-10.2); CARBON DIOXIDE 29 mmol/L (22-30); CHLORIDE 107 mmol/L (98-107); CREATINE KINASE 403 U/L (55-170); GLUCOSE 191 mg/dL (75-110); POTASSIUM 3.6 mmol/L (3.6-5.0)
[2020-02-25 01:36] LABS: CREATINE KINASE MB 3.43 ng/mL (<4.55); TROPONIN I 0.057 ng/mL
[2020-02-25 01:44] LABS: APPEARANCE,URINE SLIGHTLY-CLOUDY; BILIRUBIN,URINE NEGATIVE (NEGATIVE); COLOR,URINE YELLOW; GLUCOSE, URINE >=500 mg/dL (NEGATIVE); KETONES,URINE NEGATIVE (NEGATIVE); LEUKOCYTE ESTERASE,URINE NEGATIVE (NEGATIVE); NITRITE,URINE NEGATIVE (NEGATIVE); PROTEIN,URINE 30 mg/dL (NEGATIVE); URINE SPECIFIC GRAVITY 1.021; UROBILINOGEN,URINE NEGATIVE mg/dL (<2.0)
[2020-02-25 05:35] LABS: ABSOLUTE BASOPHILS # (AUTO) 0.1 10^3/uL (0.0-0.2); ABSOLUTE MONOCYTES (AUTO) 0.4 10^3/uL (0.1-1.4); ABSOLUTE NEUT (AUTO) 7.1 10^3/uL (1.7-8.2); HEMATOCRIT 31.6 % (37.9-51.0); HEMOGLOBIN 10.7 g/dL (13.5-17.0); LYMPHOCYTES % (AUTO) 11.7 % (13-45); MEAN CORPUSCULAR HEMOGLOBIN 26.9 pg (27.0-33.4); MEAN CORPUSCULAR HGB CONC 33.8 g/dL (32.0-36.0); MEAN CORPUSCULAR VOLUME 80 fl (80-97); MONOCYTES % (AUTO) 4.1 % (3-13); PLATELET COUNT 268 10^3/uL (150-450); RED BLOOD COUNT 3.98 10^6/uL (4.35-5.55); SEGMENTED NEUTROPHILS % (AUTO) 83.2 % (42-78); TOTAL CELLS COUNTED % (AUTO) 100 %; WHITE BLOOD COUNT 8.5 10^3/uL (4.0-10.5)
[2020-02-25 07:37] LABS: ANION GAP 9 (5-19); BLOOD UREA NITROGEN 78 mg/dL (7-20); CALCIUM 8.6 mg/dL (8.4-10.2); CARBON DIOXIDE 28 mmol/L (22-30); CHLORIDE 108 mmol/L (98-107); GLUCOSE 171 mg/dL (75-110); POTASSIUM 4.1 mmol/L (3.6-5.0)
[2020-02-25 09:21] LABS: ANION GAP 11 (5-19); BLOOD UREA NITROGEN 80 mg/dL (7-20); CALCIUM 8.6 mg/dL (8.4-10.2); CARBON DIOXIDE 27 mmol/L (22-30); CHLORIDE 107 mmol/L (98-107); GLUCOSE 226 mg/dL (75-110)
[2020-02-25 09:31] LABS: CREATINE KINASE MB 4.32 ng/mL (<4.55); TROPONIN I 0.045 ng/mL
[2020-02-25] MEDS ORDERED: REMDESIVIR 100 MG in NORMAL SALINE 250 ML IV SCH (10:00)
[2020-02-25] MEDS: APIXABAN 5 MG TABLET PO SCH ×2 (10:49→17:03)
[2020-02-25] MEDS: METOPROLOL SUCCINATE 50 MG TAB.SR.24H PO SCH (10:49)
[2020-02-25] MEDS: ZINC SULFATE 220 MG CAPSULE PO SCH (10:49)
[2020-02-25] MEDS: AMLODIPINE BESYLATE 10 MG TABLET PO SCH (10:49)
[2020-02-25] MEDS: SPIRONOLACTONE 25 MG TABLET PO SCH (10:49)
[2020-02-25] MEDS: ASCORBIC ACID 500 MG TABLET PO SCH ×2 (10:49→17:03)
[2020-02-25] MEDS: MONTELUKAST SODIUM 10 MG TABLET PO SCH (10:50)
[2020-02-25] MEDS: DEXAMETHASONE SOD PHOSPHATE INJ 4 MG/1 ML VIAL IV SCH (10:50)
[2020-02-25] MEDS: CEFTRIAXONE SODIUM 1,000 MG in DEXTROSE 5%-WATER 50 ML IV SCH (10:54)
[2020-02-25] MEDS: CHOLECALCIFEROL (D3) 1,000 UNIT (25 MCG) TABLET PO SCH (10:54)
[2020-02-25] MEDS: AZITHROMYCIN 500 MG in DEXTROSE 5%-WATER 250 ML IV SCH (13:21)
[2020-02-25 13:43] LABS: ANION GAP 10 (5-19); BLOOD UREA NITROGEN 80 mg/dL (7-20); CALCIUM 8.3 mg/dL (8.4-10.2); CARBON DIOXIDE 26 mmol/L (22-30); CHLORIDE 107 mmol/L (98-107); GLUCOSE 378 mg/dL (75-110); POTASSIUM 4.1 mmol/L (3.6-5.0)
[2020-02-25] MEDS: INSULIN LISPRO 100 UNIT/ML 3 ML VIAL SUBCUT SCH ×2 (14:23→22:05)
[2020-02-25] MEDS: NORMAL SALINE 1000 ML 1,000 ML IV PRN (14:26)
[2020-02-25] MEDS ORDERED: INSULIN LISPRO 100 UNIT/ML 3 ML VIAL ONE (16:37)
[2020-02-25] MEDS ORDERED: INSULIN GLARGINE,HUM.REC.ANLOG 1,000 UNIT/10 ML VIAL (PYX) SUBCUT ONE ×2 (16:39→17:15)
[2020-02-25 16:47] LABS: ANION GAP 12 (5-19); BLOOD UREA NITROGEN 73 mg/dL (7-20); CALCIUM 8.4 mg/dL (8.4-10.2); CARBON DIOXIDE 26 mmol/L (22-30); CHLORIDE 103 mmol/L (98-107); POTASSIUM 3.7 mmol/L (3.6-5.0)
[2020-02-25 16:58] LABS: GLUCOSE 509 mg/dL (75-110)
[2020-02-25] MEDS ORDERED: INSULIN LISPRO 100 UNIT/ML 3 ML VIAL SUBCUT ONE (17:15)
[2020-02-25 20:40] LABS: ANION GAP 11 (5-19); BLOOD UREA NITROGEN 74 mg/dL (7-20); CALCIUM 8.7 mg/dL (8.4-10.2); CARBON DIOXIDE 26 mmol/L (22-30); CHLORIDE 104 mmol/L (98-107); GLUCOSE 278 mg/dL (75-110); POTASSIUM 3.8 mmol/L (3.6-5.0)
--- NOTE | 2020-02-25 21:54 | PDOC PROGRESS REPORT ---
Subjective Date:: 02/25/20 Subjective:: Patient seen by the bedside he is alert Reason For Visit: COVID PNEUMONIA Physical Exam Vital Signs: Temp Pulse Resp BP Pulse Ox 97.6 F 57 L 22 H 104/52 L 90 L 02/25/20 20:04 02/25/20 19:29 02/25/20 19:29 02/25/20 19:29 02/25/20 19:29 Intake & Output 02/24/20 02/25/20 02/26/20 06:59 06:59 06:59 Intake Total 761 906 Output Total 450 625 Balance 311 281 Weight 65 kg General appearance: PRESENT: no acute distress Eye exam: PRESENT: PERRLA Respiratory exam: PRESENT: rhonchi Cardiovascular exam: PRESENT: +S1, +S2 GI/Abdominal exam: PRESENT: soft Neurological exam: PRESENT: alert, CN II-XII grossly intact Results Laboratory Results: 02/25/20 04:11 02/25/20 20:03 02/24/20 02/25/20 02/25/20 21:10 00:10 00:29 WBC RBC Hgb Hct MCV MCH MCHC RDW Plt Count Seg Neutrophils % Sodium 143.3 147.1 H Potassium 3.9 3.6 Chloride 105 107 Carbon Dioxide 30 29 Anion Gap 8 11 BUN 78 H 77 H Creatinine 2.80 H 2.69 H Est GFR ( Amer) 27 L 28 L Est GFR (Non-Af Amer) Glucose 343 H 191 H Calcium 8.6 8.8 Urine Color YELLOW Urine Appearance SLIGHTLY-CLOUDY Urine pH 5.0 Ur Specific [place] 1.021 Urine Protein 30 H Urine Glucose (UA) >=500 H Urine Ketones NEGATIVE Urine Blood MODERATE H Urine Nitrite NEGATIVE Ur Leukocyte Esterase NEGATIVE Urine WBC (Auto) 1 Urine RBC (Auto) 0 02/25/20 02/25/20 02/25/20 04:11 04:11 06:09 WBC 8.5 RBC 3.98 L Hgb 10.7 L Hct 31.6 L MCV 80 MCH 26.9 L MCHC 33.8 RDW 14.0 Plt Count 268 Seg Neutrophils % 83.2 H Sodium Cancelled 145.4 H Potassium Cancelled 4.1 Chloride Cancelled 108 H Carbon Dioxide Cancelled 28 Anion Gap Cancelled 9 BUN Cancelled 78 H Creatinine Cancelled 2.28 H Est GFR ( Amer) Cancelled 34 L Est GFR (Non-Af Amer) Cancelled Glucose Cancelled 171 H Calcium Cancelled 8.6 Urine Color Urine Appearance Urine pH Ur Specific [place] Urine Protein Urine Glucose (UA) Urine Ketones Urine Blood Urine Nitrite Ur Leukocyte Esterase Urine WBC (Auto) Urine RBC (Auto) 02/25/20 02/25/20 02/25/20 08:34 13:07 16:17 WBC RBC Hgb Hct MCV MCH MCHC RDW Plt Count Seg Neutrophils % Sodium 145.1 H 142.9 141.1 Potassium 4.0 4.1 3.7 Chloride 107 107 103 Carbon Dioxide 27 26 26 Anion Gap 11 10 12 BUN 80 H 80 H 73 H Creatinine 2.21 H 2.02 H 2.05 H Est GFR ( Amer) 35 L 39 L 38 L Est GFR (Non-Af Amer) Glucose 226 H 378 H 509 H* Calcium 8.6 8.3 L 8.4 Urine Color Urine Appearance Urine pH Ur Specific [place] Urine Protein Urine Glucose (UA) Urine Ketones Urine Blood Urine Nitrite Ur Leukocyte Esterase Urine WBC (Auto) Urine RBC (Auto) 02/25/20 20:03 WBC RBC Hgb Hct MCV MCH MCHC RDW Plt Count Seg Neutrophils % Sodium 141.3 Potassium 3.8 Chloride 104 Carbon Dioxide 26 Anion Gap 11 BUN 74 H Creatinine 1.81 H Est GFR ( Amer) 44 L Est GFR (Non-Af Amer) Glucose 278 H Calcium 8.7 Urine Color Urine Appearance Urine pH Ur Specific [place] Urine Protein Urine Glucose (UA) Urine Ketones Urine Blood Urine Nitrite Ur Leukocyte Esterase Urine WBC (Auto) Urine RBC (Auto) 02/24/20 02/24/20 02/24/20 12:18 12:18 21:10 Creatine Kinase 577 H 462 H CK-MB (CK-2) Troponin I 0.190 02/24/20 02/25/20 02/25/20 21:10 00:29 00:29 Creatine Kinase 403 H CK-MB (CK-2) 3.49 3.43 Troponin I 0.081 0.057 02/25/20 02/25/20 08:34 08:34 Creatine Kinase 360 H CK-MB (CK-2) 4.32 Troponin I 0.045 Impressions: Chest X-Ray 02/24/20 11:57 IMPRESSION: Bilateral basilar predominant patchy parenchymal opacities and likely small bilateral pleural effusions. Differential considerations include interstitial edema/ volume overload and multifocal pneumonia. Assessment & Plan - Diagnosis (1) Acute hypoxemic respiratory failure Is this a current diagnosis for this admission?: Yes Plan: Continue oxygen supplementation presently not requiring NIPPV, on nasal cannula 2 L (2) Pneumonia Qualifiers: Pneumonia type: due to unspecified organism Laterality: bilateral Lung location: unspecified part of lung Qualified Code(s): J18.9 - Pneumonia, unspecified organism Is this a current diagnosis for this admission?: Yes Plan: Continue IV antibiotic (3) Hyperosmolar hyperglycemic state (HHS) Is this a current diagnosis for this admission?: Yes Plan: Patient presently of insulin infusion, now on Accu-Chek q. ACHS start Lantus (4) Pneumonia due to COVID-19 virus Is this a current diagnosis for this admission?: Yes Plan: Continue IV dexamethasone, remdesivir - Time Time Spent with patient: 35 or more minutes Level of Care: IMCU Medications reviewed and adjusted accordingly: Yes Anticipated discharge: Home Anticipated DC Timeframe: Other
[2020-02-25] MEDS: REMDESIVIR 100 MG in NORMAL SALINE 250 ML IV SCH (22:06)
[2020-02-26 01:08] LABS: ANION GAP 10 (5-19); BLOOD UREA NITROGEN 69 mg/dL (7-20); CALCIUM 8.4 mg/dL (8.4-10.2); CARBON DIOXIDE 26 mmol/L (22-30); CHLORIDE 108 mmol/L (98-107); GLUCOSE 155 mg/dL (75-110); POTASSIUM 3.6 mmol/L (3.6-5.0)
[2020-02-26 04:59] LABS: HEMATOCRIT 33.6 % (37.9-51.0); HEMOGLOBIN 11.2 g/dL (13.5-17.0); MEAN CORPUSCULAR HEMOGLOBIN 26.2 pg (27.0-33.4); MEAN CORPUSCULAR HGB CONC 33.4 g/dL (32.0-36.0); MEAN CORPUSCULAR VOLUME 78 fl (80-97); PLATELET COUNT 300 10^3/uL (150-450); RED BLOOD COUNT 4.29 10^6/uL (4.35-5.55); RED CELL DISTRIBUTION WIDTH 13.8 % (11.5-14.0); WHITE BLOOD COUNT 11.9 10^3/uL (4.0-10.5)
[2020-02-26 05:28] LABS: ALBUMIN 3.1 g/dL (3.5-5.0); ALKALINE PHOSPHATASE 47 U/L (38-126); ANION GAP 8 (5-19); ASPARTATE AMINO TRANSFERASE 40 U/L (17-59); BILIRUBIN,DIRECT 0.2 mg/dL (0.0-0.4); BILIRUBIN,TOTAL 0.3 mg/dL (0.2-1.3); BLOOD UREA NITROGEN 67 mg/dL (7-20); CALCIUM 8.5 mg/dL (8.4-10.2); CARBON DIOXIDE 29 mmol/L (22-30); CHLORIDE 106 mmol/L (98-107); GLUCOSE 145 mg/dL (75-110); POTASSIUM 3.7 mmol/L (3.6-5.0); TOTAL PROTEIN 6.5 g/dL (6.3-8.2)
[2020-02-26 05:36] LABS: ABSOLUTE LYMPHOCYTES# (MANUAL) 0.8 10^3/uL (0.5-4.7); ABSOLUTE MONOCYTES # (MANUAL) 0.2 10^3/uL (0.1-1.4); ANISOCYTOSIS SLIGHT; BASOPHILS % (MANUAL) 0 % (0-2); EOSINOPHILS % (MANUAL) 0 % (0-6); HYPOCHROMASIA SLIGHT; LYMPHOCYTES % (MANUAL) 7 % (13-45); MONOCYTES % (MANUAL) 2 % (3-13); PLATELET COMMENT ADEQUATE; POIKILOCYTOSIS 1+; SEGMENTED NEUTROPHILS % (MAN) 91 % (42-78); TARGET CELLS 1+; TEAR DROP CELLS SLIGHT; TOTAL CELLS COUNTED 100
[2020-02-26] MEDS: INSULIN LISPRO 100 UNIT/ML 3 ML VIAL SUBCUT SCH ×4 (07:46→23:51)
[2020-02-26 10:25] LABS: ANION GAP 10 (5-19); BLOOD UREA NITROGEN 66 mg/dL (7-20); CALCIUM 8.2 mg/dL (8.4-10.2); CARBON DIOXIDE 25 mmol/L (22-30); CHLORIDE 109 mmol/L (98-107); GLUCOSE 177 mg/dL (75-110); POTASSIUM 3.9 mmol/L (3.6-5.0)
[2020-02-26] MEDS: CEFTRIAXONE SODIUM 1,000 MG in DEXTROSE 5%-WATER 50 ML IV SCH (11:05)
[2020-02-26] MEDS: NORMAL SALINE 1000 ML 1,000 ML IV PRN (11:05)
[2020-02-26] MEDS: MONTELUKAST SODIUM 10 MG TABLET PO SCH (11:05)
[2020-02-26] MEDS: AMLODIPINE BESYLATE 10 MG TABLET PO SCH (11:06)
[2020-02-26] MEDS: CHOLECALCIFEROL (D3) 1,000 UNIT (25 MCG) TABLET PO SCH (11:06)
[2020-02-26] MEDS: METOPROLOL SUCCINATE 50 MG TAB.SR.24H PO SCH (11:06)
[2020-02-26] MEDS: ZINC SULFATE 220 MG CAPSULE PO SCH (11:06)
[2020-02-26] MEDS: ASCORBIC ACID 500 MG TABLET PO SCH ×2 (11:06→17:42)
[2020-02-26] MEDS: SPIRONOLACTONE 25 MG TABLET PO SCH (11:06)
[2020-02-26] MEDS: APIXABAN 5 MG TABLET PO SCH ×2 (11:06→17:42)
[2020-02-26] MEDS: DEXAMETHASONE SOD PHOSPHATE INJ 4 MG/1 ML VIAL IV SCH (11:07)
[2020-02-26] MEDS: AZITHROMYCIN 500 MG in DEXTROSE 5%-WATER 250 ML IV SCH (11:39)
[2020-02-26 14:23] LABS: ANION GAP 11 (5-19); BLOOD UREA NITROGEN 62 mg/dL (7-20); CALCIUM 8.4 mg/dL (8.4-10.2); CARBON DIOXIDE 26 mmol/L (22-30); CHLORIDE 105 mmol/L (98-107); GLUCOSE 290 mg/dL (75-110); POTASSIUM 3.8 mmol/L (3.6-5.0)
--- NOTE | 2020-02-26 15:48 | PDOC PROGRESS REPORT ---
Subjective Date:: 02/26/20 Subjective:: Patient seen by the bedside he is alert, He said he feels bad Reason For Visit: COVID PNEUMONIA Physical Exam Vital Signs: Temp Pulse Resp BP Pulse Ox 97.5 F 71 16 103/51 L 91 L 02/26/20 10:53 02/26/20 10:53 02/26/20 10:53 02/26/20 10:53 02/26/20 10:53 Intake & Output 02/25/20 02/26/20 02/27/20 06:59 06:59 06:59 Intake Total 761 2156 250 Output Total 450 975 Balance 311 1181 250 Weight 65 kg 67 kg General appearance: PRESENT: no acute distress Eye exam: PRESENT: PERRLA Respiratory exam: PRESENT: rhonchi Cardiovascular exam: PRESENT: +S1, +S2 GI/Abdominal exam: PRESENT: soft Results Laboratory Results: 02/26/20 04:04 02/26/20 13:31 02/25/20 02/25/20 02/26/20 16:17 20:03 00:34 WBC RBC Hgb Hct MCV MCH MCHC RDW Plt Count Seg Neutrophils % Sodium 141.1 141.3 144.4 Potassium 3.7 3.8 3.6 Chloride 103 104 108 H Carbon Dioxide 26 26 26 Anion Gap 12 11 10 BUN 73 H 74 H 69 H Creatinine 2.05 H 1.81 H 1.68 H Est GFR ( Amer) 38 L 44 L 48 L Glucose 509 H* 278 H 155 H Calcium 8.4 8.7 8.4 Total Bilirubin AST Alkaline Phosphatase Total Protein Albumin 02/26/20 02/26/20 02/26/20 04:04 04:04 09:17 WBC 11.9 H RBC 4.29 L Hgb 11.2 L Hct 33.6 L MCV 78 L MCH 26.2 L MCHC 33.4 RDW 13.8 Plt Count 300 Seg Neutrophils % Not Reportable Sodium 143.2 143.5 Potassium 3.7 3.9 Chloride 106 109 H Carbon Dioxide 29 25 Anion Gap 8 10 BUN 67 H 66 H Creatinine 1.69 H 1.47 H Est GFR ( Amer) 47 L 56 L Glucose 145 H 177 H Calcium 8.5 8.2 L Total Bilirubin 0.3 AST 40 Alkaline Phosphatase 47 Total Protein 6.5 Albumin 3.1 L 02/26/20 13:31 WBC RBC Hgb Hct MCV MCH MCHC RDW Plt Count Seg Neutrophils % Sodium 141.6 Potassium 3.8 Chloride 105 Carbon Dioxide 26 Anion Gap 11 BUN 62 H Creatinine 1.47 H Est GFR ( Amer) 56 L Glucose 290 H Calcium 8.4 Total Bilirubin AST Alkaline Phosphatase Total Protein Albumin 02/24/20 14:53 Throat Throat Culture - Final NORMAL BONNIE 02/24/20 02/24/20 02/24/20 12:18 12:18 21:10 Creatine Kinase 577 H 462 H CK-MB (CK-2) Troponin I 0.190 02/24/20 02/25/20 02/25/20 21:10 00:29 00:29 Creatine Kinase 403 H CK-MB (CK-2) 3.49 3.43 Troponin I 0.081 0.057 02/25/20 02/25/20 08:34 08:34 Creatine Kinase 360 H CK-MB (CK-2) 4.32 Troponin I 0.045 Impressions: Chest X-Ray 02/24/20 11:57 IMPRESSION: Bilateral basilar predominant patchy parenchymal opacities and likely small bilateral pleural effusions. Differential considerations include interstitial edema/ volume overload and multifocal pneumonia. Assessment & Plan - Diagnosis (1) Acute hypoxemic respiratory failure Is this a current diagnosis for this admission?: Yes Plan: Continue oxygen supplementation presently not requiring NIPPV, on nasal cannula 2 L (2) Pneumonia Qualifiers: Pneumonia type: due to unspecified organism Laterality: bilateral Lung location: unspecified part of lung Qualified Code(s): J18.9 - Pneumonia, unspecified organism Is this a current diagnosis for this admission?: Yes Plan: Continue IV antibiotic (3) Hyperosmolar hyperglycemic state (HHS) Is this a current diagnosis for this admission?: Yes Plan: Patient presently of insulin infusion, now on Accu-Chek q. ACHS continue Lantus (4) Pneumonia due to COVID-19 virus Is this a current diagnosis for this admission?: Yes Plan: Continue IV dexamethasone, remdesivir - Time Time Spent with patient: 35 or more minutes Level of Care: IMCU Medications reviewed and adjusted accordingly: Yes Anticipated discharge: Home Anticipated DC Timeframe: Other
[2020-02-26] MEDS: INSULIN GLARGINE,HUM.REC.ANLOG 1,000 UNIT/10 ML VIAL SUBCUT SCH (17:42)
[2020-02-26 18:21] LABS: ANION GAP 7 (5-19); BLOOD UREA NITROGEN 60 mg/dL (7-20); CALCIUM 8.5 mg/dL (8.4-10.2); CARBON DIOXIDE 27 mmol/L (22-30); CHLORIDE 106 mmol/L (98-107); GLUCOSE 198 mg/dL (75-110); POTASSIUM 4.3 mmol/L (3.6-5.0)
[2020-02-26 22:33] LABS: BLOOD UREA NITROGEN 53 mg/dL (7-20); CALCIUM 8.2 mg/dL (8.4-10.2); GLUCOSE 189 mg/dL (75-110); POTASSIUM 4.3 mmol/L (3.6-5.0)
[2020-02-26 22:39] LABS: ANION GAP 5 (5-19); CARBON DIOXIDE 26 mmol/L (22-30); CHLORIDE 106 mmol/L (98-107)
[2020-02-26] MEDS: REMDESIVIR 100 MG in NORMAL SALINE 250 ML IV SCH (23:51)
[2020-02-27 01:48] LABS: ANION GAP 8 (5-19); BLOOD UREA NITROGEN 56 mg/dL (7-20); CALCIUM 8.3 mg/dL (8.4-10.2); CARBON DIOXIDE 26 mmol/L (22-30); CHLORIDE 109 mmol/L (98-107); GLUCOSE 155 mg/dL (75-110); POTASSIUM 3.9 mmol/L (3.6-5.0)
[2020-02-27 06:02] LABS: HEMATOCRIT 31.8 % (37.9-51.0); HEMOGLOBIN 10.6 g/dL (13.5-17.0); MEAN CORPUSCULAR HEMOGLOBIN 25.9 pg (27.0-33.4); MEAN CORPUSCULAR HGB CONC 33.4 g/dL (32.0-36.0); MEAN CORPUSCULAR VOLUME 78 fl (80-97); RED CELL DISTRIBUTION WIDTH 13.9 % (11.5-14.0); WHITE BLOOD COUNT 10.9 10^3/uL (4.0-10.5)
[2020-02-27 06:19] LABS: ALBUMIN 2.5 g/dL (3.5-5.0); ALKALINE PHOSPHATASE 44 U/L (38-126); ASPARTATE AMINO TRANSFERASE 37 U/L (17-59); BILIRUBIN,DIRECT 0.2 mg/dL (0.0-0.4); BILIRUBIN,TOTAL 0.4 mg/dL (0.2-1.3); BLOOD UREA NITROGEN 50 mg/dL (7-20); CALCIUM 8.1 mg/dL (8.4-10.2); CHLORIDE 111 mmol/L (98-107); GLUCOSE 103 mg/dL (75-110); TOTAL PROTEIN 5.1 g/dL (6.3-8.2)
[2020-02-27 06:30] LABS: ANION GAP 5 (5-19); CARBON DIOXIDE 27 mmol/L (22-30)
[2020-02-27 06:44] LABS: ABSOLUTE LYMPHOCYTES# (MANUAL) 0.2 10^3/uL (0.5-4.7); ABSOLUTE MONOCYTES # (MANUAL) 0.4 10^3/uL (0.1-1.4); BASOPHILS % (MANUAL) 0 % (0-2); EOSINOPHILS % (MANUAL) 0 % (0-6); LYMPHOCYTES % (MANUAL) 2 % (13-45); MONOCYTES % (MANUAL) 4 % (3-13); NUCLEATED RED BLOOD CELLS 1 /100 WBC (0); SEGMENTED NEUTROPHILS % (MAN) 94 % (42-78); TOTAL CELLS COUNTED 100
[2020-02-27 06:45] LABS: PLATELET CLUMPS PRESENT; PLATELET COMMENT ADEQUATE; PLATELET COUNT 284 10^3/uL (150-450); TARGET CELLS 1+
[2020-02-27] MEDS: INSULIN LISPRO 100 UNIT/ML 3 ML VIAL SUBCUT SCH ×4 (07:49→22:14)
[2020-02-27] MEDS: NORMAL SALINE 1000 ML 1,000 ML IV PRN ×3 (09:00→23:20)
[2020-02-27 10:19] LABS: ANION GAP 9 (5-19); BLOOD UREA NITROGEN 47 mg/dL (7-20); CALCIUM 8.3 mg/dL (8.4-10.2); CARBON DIOXIDE 25 mmol/L (22-30); CHLORIDE 109 mmol/L (98-107); GLUCOSE 119 mg/dL (75-110); POTASSIUM 3.6 mmol/L (3.6-5.0)
[2020-02-27] MEDS: ZINC SULFATE 220 MG CAPSULE PO SCH (11:28)
[2020-02-27] MEDS: MONTELUKAST SODIUM 10 MG TABLET PO SCH (11:28)
[2020-02-27] MEDS: SPIRONOLACTONE 25 MG TABLET PO SCH (11:28)
[2020-02-27] MEDS: METOPROLOL SUCCINATE 50 MG TAB.SR.24H PO SCH (11:29)
[2020-02-27] MEDS: ASCORBIC ACID 500 MG TABLET PO SCH ×2 (11:29→18:19)
[2020-02-27] MEDS: APIXABAN 5 MG TABLET PO SCH ×2 (11:29→18:19)
[2020-02-27] MEDS: CHOLECALCIFEROL (D3) 1,000 UNIT (25 MCG) TABLET PO SCH (11:33)
[2020-02-27] MEDS: AMLODIPINE BESYLATE 10 MG TABLET PO SCH (11:34)
[2020-02-27] MEDS: CEFTRIAXONE SODIUM 1,000 MG in DEXTROSE 5%-WATER 50 ML IV SCH (11:48)
[2020-02-27] MEDS: DEXAMETHASONE SOD PHOSPHATE INJ 4 MG/1 ML VIAL IV SCH (11:48)
[2020-02-27] MEDS: AZITHROMYCIN 500 MG in DEXTROSE 5%-WATER 250 ML IV SCH (11:49)
[2020-02-27 15:18] LABS: ANION GAP 8 (5-19); BLOOD UREA NITROGEN 44 mg/dL (7-20); CALCIUM 8.2 mg/dL (8.4-10.2); CARBON DIOXIDE 24 mmol/L (22-30); CHLORIDE 108 mmol/L (98-107); GLUCOSE 215 mg/dL (75-110); POTASSIUM 4.3 mmol/L (3.6-5.0)
[2020-02-27] MEDS: INSULIN GLARGINE,HUM.REC.ANLOG 1,000 UNIT/10 ML VIAL SUBCUT SCH (18:19)
[2020-02-27 19:49] LABS: ANION GAP 8 (5-19); BLOOD UREA NITROGEN 40 mg/dL (7-20); CALCIUM 8.4 mg/dL (8.4-10.2); CARBON DIOXIDE 25 mmol/L (22-30); CHLORIDE 107 mmol/L (98-107); GLUCOSE 199 mg/dL (75-110); POTASSIUM 4.3 mmol/L (3.6-5.0)
--- NOTE | 2020-02-27 20:17 | PDOC PROGRESS REPORT ---
Subjective Date:: 02/27/20 Subjective:: Patient seen by the bedside, he requires oxygen supplementation via nasal cannula, Patient is somewhat confused, he continues to pull IVs out Reason For Visit: COVID PNEUMONIA Physical Exam Vital Signs: Temp Pulse Resp BP Pulse Ox 97.5 F 62 20 109/61 92 02/27/20 15:57 02/27/20 19:00 02/27/20 15:57 02/27/20 15:57 02/27/20 18:03 Intake & Output 02/26/20 02/27/20 02/28/20 06:59 06:59 06:59 Intake Total 2156 1590 620 Output Total 975 810 Balance 1181 780 620 Weight 67 kg 65.7 kg General appearance: PRESENT: no acute distress Respiratory exam: PRESENT: rhonchi Cardiovascular exam: PRESENT: +S1, +S2 GI/Abdominal exam: PRESENT: soft Neurological exam: PRESENT: alert Results Laboratory Results: 02/27/20 05:36 02/27/20 18:53 02/26/20 02/27/20 02/27/20 21:31 01:26 05:36 WBC 10.9 H RBC 4.10 L Hgb 10.6 L Hct 31.8 L MCV 78 L MCH 25.9 L MCHC 33.4 RDW 13.9 Plt Count 284 Seg Neutrophils % Not Reportable Sodium 137.4 142.5 Potassium 4.3 3.9 Chloride 106 109 H Carbon Dioxide 26 26 Anion Gap 5 8 BUN 53 H 56 H Creatinine 1.43 H 1.31 H Est GFR ( Amer) 58 L > 60 Glucose 189 H 155 H Calcium 8.2 L 8.3 L Total Bilirubin AST Alkaline Phosphatase Total Protein Albumin Blood Type 02/27/20 02/27/20 02/27/20 05:36 09:47 14:41 WBC RBC Hgb Hct MCV MCH MCHC RDW Plt Count Seg Neutrophils % Sodium 142.5 142.9 139.5 Potassium 4.0 3.6 4.3 Chloride 111 H 109 H 108 H Carbon Dioxide 27 25 24 Anion Gap 5 9 8 BUN 50 H 47 H 44 H Creatinine 1.32 H 1.24 1.19 Est GFR ( Amer) > 60 > 60 > 60 Glucose 103 119 H 215 H Calcium 8.1 L 8.3 L 8.2 L Total Bilirubin 0.4 AST 37 Alkaline Phosphatase 44 Total Protein 5.1 L Albumin 2.5 L Blood Type 02/27/20 02/27/20 16:28 18:53 WBC RBC Hgb Hct MCV MCH MCHC RDW Plt Count Seg Neutrophils % Sodium 139.6 Potassium 4.3 Chloride 107 Carbon Dioxide 25 Anion Gap 8 BUN 40 H Creatinine 1.18 Est GFR ( Amer) > 60 Glucose 199 H Calcium 8.4 Total Bilirubin AST Alkaline Phosphatase Total Protein Albumin Blood Type Cancelled 02/24/20 02/24/20 02/24/20 12:18 12:18 21:10 Creatine Kinase 577 H 462 H CK-MB (CK-2) Troponin I 0.190 02/24/20 02/25/20 02/25/20 21:10 00:29 00:29 Creatine Kinase 403 H CK-MB (CK-2) 3.49 3.43 Troponin I 0.081 0.057 02/25/20 02/25/20 08:34 08:34 Creatine Kinase 360 H CK-MB (CK-2) 4.32 Troponin I 0.045 Impressions: Chest X-Ray 02/24/20 11:57 IMPRESSION: Bilateral basilar predominant patchy parenchymal opacities and likely small bilateral pleural effusions. Differential considerations include interstitial edema/ volume overload and multifocal pneumonia. Assessment & Plan - Diagnosis (1) Acute hypoxemic respiratory failure Is this a current diagnosis for this admission?: Yes Plan: Continue oxygen supplementation presently not requiring NIPPV, on nasal cannula 2 L (2) Pneumonia Qualifiers: Pneumonia type: due to unspecified organism Laterality: bilateral Lung location: unspecified part of lung Qualified Code(s): J18.9 - Pneumonia, unspecified organism Is this a current diagnosis for this admission?: Yes Plan: Continue IV antibiotic (3) Hyperosmolar hyperglycemic state (HHS) Is this a current diagnosis for this admission?: Yes (4) Pneumonia due to COVID-19 virus Is this a current diagnosis for this admission?: Yes Plan: Continue IV dexamethasone, remdesivir - Time Time Spent with patient: 35 or more minutes Level of Care: IMCU Medications reviewed and adjusted accordingly: Yes Anticipated discharge: Home
[2020-02-27] MEDS: REMDESIVIR 100 MG in NORMAL SALINE 250 ML IV SCH (22:14)
[2020-02-27 23:11] LABS: BLOOD UREA NITROGEN 39 mg/dL (7-20); CALCIUM 8.2 mg/dL (8.4-10.2); CARBON DIOXIDE 26 mmol/L (22-30); GLUCOSE 160 mg/dL (75-110); POTASSIUM 4.7 mmol/L (3.6-5.0)
[2020-02-27 23:16] LABS: CHLORIDE 110 mmol/L (98-107)
[2020-02-27 23:25] LABS: ANION GAP 4 (5-19)
[2020-02-28 02:53] LABS: ANION GAP 8 (5-19); BLOOD UREA NITROGEN 38 mg/dL (7-20); CALCIUM 8.2 mg/dL (8.4-10.2); CARBON DIOXIDE 22 mmol/L (22-30); CHLORIDE 113 mmol/L (98-107); GLUCOSE 83 mg/dL (75-110); POTASSIUM 4.6 mmol/L (3.6-5.0)
[2020-02-28 06:32] LABS: ABSOLUTE LYMPHOCYTES (AUTO) 0.6 10^3/uL (0.5-4.7); ABSOLUTE MONOCYTES (AUTO) 0.5 10^3/uL (0.1-1.4); ABSOLUTE NEUT (AUTO) 9.1 10^3/uL (1.7-8.2); BASOPHILS % (AUTO) 0.3 % (0-2); EOSINOPHILS % (AUTO) 0.1 % (0-6); HEMATOCRIT 33.2 % (37.9-51.0); HEMOGLOBIN 11.5 g/dL (13.5-17.0); LYMPHOCYTES % (AUTO) 5.9 % (13-45); MEAN CORPUSCULAR HEMOGLOBIN 26.8 pg (27.0-33.4); MEAN CORPUSCULAR HGB CONC 34.5 g/dL (32.0-36.0); MEAN CORPUSCULAR VOLUME 78 fl (80-97); MONOCYTES % (AUTO) 5.2 % (3-13); PLATELET COUNT 340 10^3/uL (150-450); RED BLOOD COUNT 4.29 10^6/uL (4.35-5.55); RED CELL DISTRIBUTION WIDTH 13.9 % (11.5-14.0); SEGMENTED NEUTROPHILS % (AUTO) 88.5 % (42-78); TOTAL CELLS COUNTED % (AUTO) 100 %; WHITE BLOOD COUNT 10.2 10^3/uL (4.0-10.5)
[2020-02-28 06:51] LABS: ALBUMIN 2.7 g/dL (3.5-5.0); ALKALINE PHOSPHATASE 54 U/L (38-126); ANION GAP 9 (5-19); ASPARTATE AMINO TRANSFERASE 39 U/L (17-59); BILIRUBIN,DIRECT 0.2 mg/dL (0.0-0.4); BILIRUBIN,TOTAL 0.5 mg/dL (0.2-1.3); BLOOD UREA NITROGEN 35 mg/dL (7-20); CALCIUM 8.3 mg/dL (8.4-10.2); CARBON DIOXIDE 23 mmol/L (22-30); CHLORIDE 113 mmol/L (98-107); GLUCOSE 71 mg/dL (75-110); POTASSIUM 4.1 mmol/L (3.6-5.0); TOTAL PROTEIN 5.5 g/dL (6.3-8.2)
[2020-02-28] MEDS: INSULIN LISPRO 100 UNIT/ML 3 ML VIAL SUBCUT SCH ×4 (07:55→21:29)
[2020-02-28] MEDS: ZINC SULFATE 220 MG CAPSULE PO SCH (09:10)
[2020-02-28] MEDS: CHOLECALCIFEROL (D3) 1,000 UNIT (25 MCG) TABLET PO SCH (09:10)
[2020-02-28] MEDS: AMLODIPINE BESYLATE 10 MG TABLET PO SCH (09:10)
[2020-02-28] MEDS: SPIRONOLACTONE 25 MG TABLET PO SCH (09:10)
[2020-02-28] MEDS: MONTELUKAST SODIUM 10 MG TABLET PO SCH (09:10)
[2020-02-28] MEDS: DEXAMETHASONE SOD PHOSPHATE INJ 4 MG/1 ML VIAL IV SCH (09:11)
[2020-02-28] MEDS: METOPROLOL SUCCINATE 50 MG TAB.SR.24H PO SCH (09:11)
[2020-02-28] MEDS: APIXABAN 5 MG TABLET PO SCH ×2 (09:18→17:30)
[2020-02-28] MEDS: ASCORBIC ACID 500 MG TABLET PO SCH ×2 (09:22→17:30)
[2020-02-28] MEDS: CEFTRIAXONE SODIUM 1,000 MG in DEXTROSE 5%-WATER 50 ML IV SCH (10:06)
[2020-02-28] MEDS: AZITHROMYCIN 500 MG in DEXTROSE 5%-WATER 250 ML IV SCH (10:46)
[2020-02-28 12:04] LABS: ANION GAP 6 (5-19); BLOOD UREA NITROGEN 31 mg/dL (7-20); CALCIUM 8.1 mg/dL (8.4-10.2); CARBON DIOXIDE 23 mmol/L (22-30); CHLORIDE 111 mmol/L (98-107); GLUCOSE 141 mg/dL (75-110); POTASSIUM 4.3 mmol/L (3.6-5.0)
[2020-02-28] MEDS: NORMAL SALINE 1000 ML 1,000 ML IV PRN (15:22)
[2020-02-28 15:59] LABS: ANION GAP 7 (5-19); BLOOD UREA NITROGEN 30 mg/dL (7-20); CALCIUM 8.3 mg/dL (8.4-10.2); CARBON DIOXIDE 25 mmol/L (22-30); CHLORIDE 109 mmol/L (98-107); GLUCOSE 131 mg/dL (75-110); POTASSIUM 4.4 mmol/L (3.6-5.0)
[2020-02-28] MEDS: INSULIN GLARGINE,HUM.REC.ANLOG 1,000 UNIT/10 ML VIAL SUBCUT SCH (20:03)
--- NOTE | 2020-02-28 21:06 | PDOC PROGRESS REPORT ---
Subjective Date:: 02/28/20 Subjective:: Patient seen by the bedside somewhat confused Reason For Visit: COVID PNEUMONIA Physical Exam Vital Signs: Temp Pulse Resp BP Pulse Ox 97.4 F 62 18 122/66 94 02/28/20 15:40 02/28/20 15:40 02/28/20 15:40 02/28/20 15:40 02/28/20 20:03 Intake & Output 02/27/20 02/28/20 02/29/20 06:59 06:59 06:59 Intake Total 1590 1870 1610 Output Total 810 700 375 Balance 780 1170 1235 Weight 65.7 kg 67 kg General appearance: PRESENT: no acute distress Eye exam: PRESENT: PERRLA Respiratory exam: PRESENT: rhonchi Cardiovascular exam: PRESENT: +S1, +S2 GI/Abdominal exam: PRESENT: soft Neurological exam: PRESENT: alert Results Laboratory Results: 02/28/20 05:58 02/28/20 15:26 02/27/20 02/28/20 02/28/20 22:39 02:28 05:58 WBC 10.2 RBC 4.29 L Hgb 11.5 L Hct 33.2 L MCV 78 L MCH 26.8 L MCHC 34.5 RDW 13.9 Plt Count 340 Seg Neutrophils % 88.5 H Sodium 139.9 143.3 Potassium 4.7 4.6 Chloride 110 H 113 H Carbon Dioxide 26 22 Anion Gap 4 L 8 BUN 39 H 38 H Creatinine 1.09 1.03 Est GFR ( Amer) > 60 > 60 Est GFR (Non-Af Amer) Glucose 160 H 83 Calcium 8.2 L 8.2 L Total Bilirubin AST Alkaline Phosphatase Total Protein Albumin 02/28/20 02/28/20 02/28/20 05:58 11:38 14:11 WBC RBC Hgb Hct MCV MCH MCHC RDW Plt Count Seg Neutrophils % Sodium 145.3 H 140.3 Cancelled Potassium 4.1 4.3 Cancelled Chloride 113 H 111 H Cancelled Carbon Dioxide 23 23 Cancelled Anion Gap 9 6 Cancelled BUN 35 H 31 H Cancelled Creatinine 1.06 0.98 Cancelled Est GFR ( Amer) > 60 > 60 Cancelled Est GFR (Non-Af Amer) Cancelled Glucose 71 L 141 H Cancelled Calcium 8.3 L 8.1 L Cancelled Total Bilirubin 0.5 AST 39 Alkaline Phosphatase 54 Total Protein 5.5 L Albumin 2.7 L 02/28/20 15:26 WBC RBC Hgb Hct MCV MCH MCHC RDW Plt Count Seg Neutrophils % Sodium 140.7 Potassium 4.4 Chloride 109 H Carbon Dioxide 25 Anion Gap 7 BUN 30 H Creatinine 1.00 Est GFR ( Amer) > 60 Est GFR (Non-Af Amer) Glucose 131 H Calcium 8.3 L Total Bilirubin AST Alkaline Phosphatase Total Protein Albumin 02/24/20 02/24/20 02/24/20 12:18 12:18 21:10 Creatine Kinase 577 H 462 H CK-MB (CK-2) Troponin I 0.190 02/24/20 02/25/20 02/25/20 21:10 00:29 00:29 Creatine Kinase 403 H CK-MB (CK-2) 3.49 3.43 Troponin I 0.081 0.057 02/25/20 02/25/20 08:34 08:34 Creatine Kinase 360 H CK-MB (CK-2) 4.32 Troponin I 0.045 Impressions: Chest X-Ray 02/24/20 11:57 IMPRESSION: Bilateral basilar predominant patchy parenchymal opacities and likely small bilateral pleural effusions. Differential considerations include interstitial edema/ volume overload and multifocal pneumonia. Assessment & Plan - Diagnosis (1) Acute hypoxemic respiratory failure Is this a current diagnosis for this admission?: Yes Plan: Continue oxygen supplementation presently not requiring NIPPV, on nasal cannula 2 L (2) Pneumonia Qualifiers: Pneumonia type: due to unspecified organism Laterality: bilateral Lung location: unspecified part of lung Qualified Code(s): J18.9 - Pneumonia, unspecified organism Is this a current diagnosis for this admission?: Yes Plan: Continue IV antibiotic (3) Hyperosmolar hyperglycemic state (HHS) Is this a current diagnosis for this admission?: Yes (4) Pneumonia due to COVID-19 virus Is this a current diagnosis for this admission?: Yes Plan: Continue IV dexamethasone, remdesivir - Time Time Spent with patient: 35 or more minutes Level of Care: IMCU Medications reviewed and adjusted accordingly: Yes Anticipated discharge: Home Anticipated DC Timeframe: Other
[2020-02-28] MEDS: REMDESIVIR 100 MG in NORMAL SALINE 250 ML IV SCH (21:29)
[2020-02-28 21:38] LABS: ANION GAP 7 (5-19); BLOOD UREA NITROGEN 30 mg/dL (7-20); CALCIUM 8.4 mg/dL (8.4-10.2); CARBON DIOXIDE 23 mmol/L (22-30); CHLORIDE 109 mmol/L (98-107); GLUCOSE 160 mg/dL (75-110)
[2020-02-29 01:32] LABS: ANION GAP 8 (5-19); BLOOD UREA NITROGEN 29 mg/dL (7-20); CALCIUM 8.4 mg/dL (8.4-10.2); CARBON DIOXIDE 24 mmol/L (22-30); CHLORIDE 111 mmol/L (98-107); GLUCOSE 93 mg/dL (75-110); POTASSIUM 4.4 mmol/L (3.6-5.0)
[2020-02-29] MEDS: NORMAL SALINE 1000 ML 1,000 ML IV PRN ×2 (05:28→22:00)
[2020-02-29 05:33] LABS: ABSOLUTE LYMPHOCYTES (AUTO) 0.6 10^3/uL (0.5-4.7); ABSOLUTE MONOCYTES (AUTO) 0.4 10^3/uL (0.1-1.4); ABSOLUTE NEUT (AUTO) 9.3 10^3/uL (1.7-8.2); BASOPHILS % (AUTO) 0.2 % (0-2); EOSINOPHILS % (AUTO) 0.1 % (0-6); HEMATOCRIT 33.9 % (37.9-51.0); HEMOGLOBIN 11.5 g/dL (13.5-17.0); LYMPHOCYTES % (AUTO) 5.6 % (13-45); MEAN CORPUSCULAR HEMOGLOBIN 26.1 pg (27.0-33.4); MEAN CORPUSCULAR VOLUME 77 fl (80-97); MONOCYTES % (AUTO) 4.1 % (3-13); PLATELET COUNT 348 10^3/uL (150-450); RED BLOOD COUNT 4.42 10^6/uL (4.35-5.55); RED CELL DISTRIBUTION WIDTH 13.8 % (11.5-14.0); TOTAL CELLS COUNTED % (AUTO) 100 %; WHITE BLOOD COUNT 10.3 10^3/uL (4.0-10.5)
[2020-02-29 05:52] LABS: ALBUMIN 2.7 g/dL (3.5-5.0); ALKALINE PHOSPHATASE 55 U/L (38-126); ANION GAP 9 (5-19); ASPARTATE AMINO TRANSFERASE 41 U/L (17-59); BILIRUBIN,DIRECT 0.2 mg/dL (0.0-0.4); BILIRUBIN,TOTAL 0.6 mg/dL (0.2-1.3); BLOOD UREA NITROGEN 28 mg/dL (7-20); CALCIUM 8.4 mg/dL (8.4-10.2); CARBON DIOXIDE 21 mmol/L (22-30); CHLORIDE 113 mmol/L (98-107); POTASSIUM 4.5 mmol/L (3.6-5.0); TOTAL PROTEIN 5.6 g/dL (6.3-8.2)
[2020-02-29 05:55] LABS: GLUCOSE 67 mg/dL (75-110)
[2020-02-29] MEDS: INSULIN LISPRO 100 UNIT/ML 3 ML VIAL SUBCUT SCH ×4 (07:38→21:47)
[2020-02-29] MEDS: APIXABAN 5 MG TABLET PO SCH ×2 (10:50→17:34)
[2020-02-29] MEDS: ASCORBIC ACID 500 MG TABLET PO SCH ×2 (10:50→17:34)
[2020-02-29] MEDS: DEXAMETHASONE SOD PHOSPHATE INJ 4 MG/1 ML VIAL IV SCH (10:50)
[2020-02-29] MEDS: AMLODIPINE BESYLATE 10 MG TABLET PO SCH (10:50)
[2020-02-29] MEDS: METOPROLOL SUCCINATE 50 MG TAB.SR.24H PO SCH (10:51)
[2020-02-29] MEDS: MONTELUKAST SODIUM 10 MG TABLET PO SCH (10:51)
[2020-02-29] MEDS: SPIRONOLACTONE 25 MG TABLET PO SCH (10:51)
[2020-02-29] MEDS: ZINC SULFATE 220 MG CAPSULE PO SCH (10:51)
[2020-02-29] MEDS: CHOLECALCIFEROL (D3) 1,000 UNIT (25 MCG) TABLET PO SCH (10:51)
[2020-02-29 12:17] LABS: ANION GAP 10 (5-19); BLOOD UREA NITROGEN 27 mg/dL (7-20); CALCIUM 8.5 mg/dL (8.4-10.2); CARBON DIOXIDE 24 mmol/L (22-30); CHLORIDE 111 mmol/L (98-107); POTASSIUM 4.5 mmol/L (3.6-5.0)
[2020-02-29 12:20] LABS: GLUCOSE 62 mg/dL (75-110)
[2020-02-29] MEDS: AZITHROMYCIN 500 MG in DEXTROSE 5%-WATER 250 ML IV SCH (14:18)
[2020-02-29] MEDS: CEFTRIAXONE SODIUM 1,000 MG in DEXTROSE 5%-WATER 50 ML IV SCH (14:18)
--- NOTE | 2020-02-29 16:19 | PDOC PROGRESS REPORT ---
Subjective Date:: 02/29/20 Subjective:: Patient seen by the bedside, still confused, pulling IV lines, oxygen lines, Reason For Visit: COVID PNEUMONIA Physical Exam Vital Signs: Temp Pulse Resp BP Pulse Ox 98.2 F 83 19 130/52 H 93 02/29/20 10:00 02/29/20 14:00 02/29/20 08:00 02/29/20 08:00 02/29/20 08:00 Intake & Output 02/28/20 02/29/20 03/01/20 06:59 06:59 06:59 Intake Total 1870 2847 Output Total 700 825 Balance 1170 2 Weight 67 kg 67 kg General appearance: PRESENT: no acute distress Eye exam: PRESENT: PERRLA Respiratory exam: PRESENT: rhonchi Cardiovascular exam: PRESENT: +S1, +S2 GI/Abdominal exam: PRESENT: soft Neurological exam: PRESENT: alert Results Laboratory Results: 02/29/20 04:54 02/29/20 14:48 02/28/20 02/29/20 02/29/20 20:54 01:04 04:54 WBC 10.3 RBC 4.42 Hgb 11.5 L Hct 33.9 L MCV 77 L MCH 26.1 L MCHC 34.0 RDW 13.8 Plt Count 348 Seg Neutrophils % 90.0 H Sodium 139.1 143.1 Potassium 5.0 4.4 Chloride 109 H 111 H Carbon Dioxide 23 24 Anion Gap 7 8 BUN 30 H 29 H Creatinine 0.97 0.99 Est GFR ( Amer) > 60 > 60 Est GFR (Non-Af Amer) Glucose 160 H 93 Calcium 8.4 8.4 Total Bilirubin AST Alkaline Phosphatase Total Protein Albumin 02/29/20 02/29/20 02/29/20 04:54 11:09 14:48 WBC RBC Hgb Hct MCV MCH MCHC RDW Plt Count Seg Neutrophils % Sodium 143.3 145.0 Cancelled Potassium 4.5 4.5 Cancelled Chloride 113 H 111 H Cancelled Carbon Dioxide 21 L 24 Cancelled Anion Gap 9 10 Cancelled BUN 28 H 27 H Cancelled Creatinine 0.97 0.93 Cancelled Est GFR ( Amer) > 60 > 60 Cancelled Est GFR (Non-Af Amer) Cancelled Glucose 67 L 62 L Cancelled Calcium 8.4 8.5 Cancelled Total Bilirubin 0.6 AST 41 Alkaline Phosphatase 55 Total Protein 5.6 L Albumin 2.7 L 02/24/20 02/24/20 02/24/20 12:18 12:18 21:10 Creatine Kinase 577 H 462 H CK-MB (CK-2) Troponin I 0.190 02/24/20 02/25/20 02/25/20 21:10 00:29 00:29 Creatine Kinase 403 H CK-MB (CK-2) 3.49 3.43 Troponin I 0.081 0.057 02/25/20 02/25/20 08:34 08:34 Creatine Kinase 360 H CK-MB (CK-2) 4.32 Troponin I 0.045 Impressions: Chest X-Ray 02/24/20 11:57 IMPRESSION: Bilateral basilar predominant patchy parenchymal opacities and likely small bilateral pleural effusions. Differential considerations include interstitial edema/ volume overload and multifocal pneumonia. Assessment & Plan - Diagnosis (1) Acute hypoxemic respiratory failure Is this a current diagnosis for this admission?: Yes Plan: Continue oxygen supplementation presently not requiring NIPPV, on nasal cannula 2 L (2) Pneumonia Qualifiers: Pneumonia type: due to unspecified organism Laterality: bilateral Lung location: unspecified part of lung Qualified Code(s): J18.9 - Pneumonia, unspecified organism Is this a current diagnosis for this admission?: Yes Plan: Continue IV antibiotic (3) Hyperosmolar hyperglycemic state (HHS) Is this a current diagnosis for this admission?: Yes (4) Pneumonia due to COVID-19 virus Is this a current diagnosis for this admission?: Yes Plan: Continue IV dexamethasone, - Time Time Spent with patient: Less than 15 minutes Level of Care: IMCU Medications reviewed and adjusted accordingly: Yes Anticipated discharge: Home Anticipated DC Timeframe: Other
[2020-02-29] MEDS: INSULIN GLARGINE,HUM.REC.ANLOG 1,000 UNIT/10 ML VIAL SUBCUT SCH (17:34)
[2020-03-01 07:16] LABS: HEMATOCRIT 34.1 % (37.9-51.0); HEMOGLOBIN 11.2 g/dL (13.5-17.0); MEAN CORPUSCULAR HEMOGLOBIN 25.7 pg (27.0-33.4); MEAN CORPUSCULAR HGB CONC 32.9 g/dL (32.0-36.0); MEAN CORPUSCULAR VOLUME 78 fl (80-97); PLATELET COUNT 376 10^3/uL (150-450); RED BLOOD COUNT 4.35 10^6/uL (4.35-5.55); RED CELL DISTRIBUTION WIDTH 14.5 % (11.5-14.0)
[2020-03-01 08:00] LABS: ABSOLUTE LYMPHOCYTES# (MANUAL) 0.8 10^3/uL (0.5-4.7); ABSOLUTE MONOCYTES # (MANUAL) 0.5 10^3/uL (0.1-1.4); BASOPHILS % (MANUAL) 0 % (0-2); EOSINOPHILS % (MANUAL) 1 % (0-6); LYMPHOCYTES % (MANUAL) 8 % (13-45); MONOCYTES % (MANUAL) 5 % (3-13); SEGMENTED NEUTROPHILS % (MAN) 86 % (42-78); TOTAL CELLS COUNTED 100
[2020-03-01 08:01] LABS: ANISOCYTOSIS SLIGHT; HYPOCHROMASIA SLIGHT; TOXIC GRANULATION 2+; TOXIC VACUOLATION PRESENT
[2020-03-01 08:02] LABS: PLATELET COMMENT ADEQUATE; PLATELET LARGE PRESENT; TARGET CELLS SLIGHT
--- NOTE | 2020-03-01 08:05 | RADIOLOGY REPORT (SQ) ---
EXAM DESCRIPTION: CHEST SINGLE VIEW IMAGES COMPLETED DATE/TIME: 02/29/2020 5:01 pm REASON FOR STUDY: pneumonia COMPARISON: Chest film 12/24/2020, 11/07/2019 EXAM PARAMETERS: NUMBER OF VIEWS: One view. TECHNIQUE: Single frontal radiographic view of the chest acquired. RADIATION DOSE: NA LIMITATIONS: None. FINDINGS: LUNGS AND PLEURA: Diffuse bilateral alveolar and interstitial infiltrates are present the right and left mid lung, progressive since 12/24/2020. No gross pleural effusion or pneumothorax. MEDIASTINUM AND HILAR STRUCTURES: No masses. Contour normal. Surgical clips left paratracheal regio n HEART AND VASCULAR STRUCTURES: Borderline cardiomegaly with unchanged left-sided dual lead pacemaker BONES: No acute findings. HARDWARE: None in the chest. OTHER: No other significant finding. IMPRESSION: Diffuse bilateral alveolar and interstitial infiltrates are present, progressive since 02/24/2020. No gross pneumothorax or pleural effusion. TECHNICAL DOCUMENTATION: JOB ID: [id number] 2010 [employer]- All Rights Reserved Reading location - IP/workstation name: [id number]
[2020-03-01 09:52] LABS: ALBUMIN 2.7 g/dL (3.5-5.0); ALKALINE PHOSPHATASE 60 U/L (38-126); ANION GAP 5 (5-19); ASPARTATE AMINO TRANSFERASE 40 U/L (17-59); BILIRUBIN,DIRECT 0.2 mg/dL (0.0-0.4); BILIRUBIN,TOTAL 0.9 mg/dL (0.2-1.3); BLOOD UREA NITROGEN 26 mg/dL (7-20); CALCIUM 8.5 mg/dL (8.4-10.2); CARBON DIOXIDE 22 mmol/L (22-30); CHLORIDE 110 mmol/L (98-107); POTASSIUM 4.9 mmol/L (3.6-5.0); TOTAL PROTEIN 5.8 g/dL (6.3-8.2)
[2020-03-01 09:54] LABS: GLUCOSE 64 mg/dL (75-110)
[2020-03-01] MEDS: SPIRONOLACTONE 25 MG TABLET PO SCH (10:00)
[2020-03-01] MEDS: MONTELUKAST SODIUM 10 MG TABLET PO SCH (10:00)
[2020-03-01] MEDS: APIXABAN 5 MG TABLET PO SCH ×2 (10:00→17:12)
[2020-03-01] MEDS: ZINC SULFATE 220 MG CAPSULE PO SCH (10:00)
[2020-03-01] MEDS: CHOLECALCIFEROL (D3) 1,000 UNIT (25 MCG) TABLET PO SCH (10:00)
[2020-03-01] MEDS: DEXAMETHASONE SOD PHOSPHATE INJ 4 MG/1 ML VIAL IV SCH (10:00)
[2020-03-01] MEDS: ASCORBIC ACID 500 MG TABLET PO SCH ×2 (10:01→17:12)
[2020-03-01] MEDS: AMLODIPINE BESYLATE 10 MG TABLET PO SCH (10:01)
[2020-03-01] MEDS: METOPROLOL SUCCINATE 50 MG TAB.SR.24H PO SCH (10:01)
[2020-03-01] MEDS: INSULIN LISPRO 100 UNIT/ML 3 ML VIAL SUBCUT SCH ×4 (10:51→21:34)
[2020-03-01] MEDS: CEFTRIAXONE SODIUM 1,000 MG in DEXTROSE 5%-WATER 50 ML IV SCH (10:52)
[2020-03-01] MEDS: AZITHROMYCIN 500 MG in DEXTROSE 5%-WATER 250 ML IV SCH (12:40)
--- NOTE | 2020-03-01 16:30 | PDOC PROGRESS REPORT ---
Subjective Date:: 03/01/20 Subjective:: Patient seen by the bedside he is not requiring oxygen supplementation chest x- ray from yesterday still demonstrated diffuse infiltrate bilaterally, patient is still on IV dexamethasone, IV azithromycin, he has finished the IV remdesivir, presently restrained because of confusion associated with pulling IV lines, Reason For Visit: COVID PNEUMONIA Physical Exam Vital Signs: Temp Pulse Resp BP Pulse Ox 98.7 F 84 20 138/62 H 94 03/01/20 12:26 03/01/20 14:00 03/01/20 12:26 03/01/20 12:26 03/01/20 12:26 Intake & Output 02/29/20 03/01/20 03/02/20 06:59 06:59 06:59 Intake Total 2847 1510 Output Total 825 Balance 2021 151 Weight 67 kg 65 kg General appearance: PRESENT: no acute distress Eye exam: PRESENT: PERRLA Respiratory exam: PRESENT: clear to auscultation ken Cardiovascular exam: PRESENT: +S1, +S2 GI/Abdominal exam: PRESENT: soft Neurological exam: PRESENT: alert Results Laboratory Results: 03/01/20 06:40 03/01/20 08:50 03/01/20 03/01/20 03/01/20 06:40 06:40 08:50 WBC 10.0 RBC 4.35 Hgb 11.2 L Hct 34.1 L MCV 78 L MCH 25.7 L MCHC 32.9 RDW 14.5 H Plt Count 376 Seg Neutrophils % Not Reportable Sodium Cancelled 136.9 L Potassium Cancelled 4.9 Chloride Cancelled 110 H Carbon Dioxide Cancelled 22 Anion Gap Cancelled 5 BUN Cancelled 26 H Creatinine Cancelled 0.90 Est GFR ( Amer) Cancelled > 60 Est GFR (Non-Af Amer) Cancelled Glucose Cancelled 64 L Calcium Cancelled 8.5 Total Bilirubin Cancelled 0.9 AST Cancelled 40 Alkaline Phosphatase Cancelled 60 Total Protein Cancelled 5.8 L Albumin Cancelled 2.7 L 02/24/20 20:48 Blood Blood Culture - Final NO GROWTH IN 5 DAYS 02/24/20 21:10 Blood Blood Culture - Final NO GROWTH IN 5 DAYS 02/24/20 02/24/20 02/24/20 12:18 12:18 21:10 Creatine Kinase 577 H 462 H CK-MB (CK-2) Troponin I 0.190 02/24/20 02/25/20 02/25/20 21:10 00:29 00:29 Creatine Kinase 403 H CK-MB (CK-2) 3.49 3.43 Troponin I 0.081 0.057 02/25/20 02/25/20 08:34 08:34 Creatine Kinase 360 H CK-MB (CK-2) 4.32 Troponin I 0.045 Impressions: Chest X-Ray 02/29/20 00:00 IMPRESSION: Diffuse bilateral alveolar and interstitial infiltrates are present, progressive since 12/24/2020. No gross pneumothorax or pleural effusion. Assessment & Plan - Diagnosis (1) Acute hypoxemic respiratory failure Is this a current diagnosis for this admission?: Yes Plan: Patient presently not requiring oxygen supplementation the oxygen saturation in ambient air is more than 90% (2) Pneumonia Qualifiers: Pneumonia type: due to unspecified organism Laterality: bilateral Lung location: unspecified part of lung Qualified Code(s): J18.9 - Pneumonia, unspecified organism Is this a current diagnosis for this admission?: Yes (3) Hyperosmolar hyperglycemic state (HHS) Is this a current diagnosis for this admission?: Yes Plan: This is resolved (4) Pneumonia due to COVID-19 virus Is this a current diagnosis for this admission?: Yes Plan: Continue IV dexamethasone for a total of 10 days, already finished IV remdesivir - Time Time Spent with patient: 35 or more minutes Level of Care: IMCU Medications reviewed and adjusted accordingly: Yes Anticipated discharge: Home Anticipated DC Timeframe: Other
[2020-03-01] MEDS: INSULIN GLARGINE,HUM.REC.ANLOG 1,000 UNIT/10 ML VIAL SUBCUT SCH (17:10)
[2020-03-01] MEDS ORDERED: LORAZEPAM INJ 2 MG/1 ML VIAL IV ONE (21:45)
[2020-03-02 06:38] LABS: ABSOLUTE LYMPHOCYTES (AUTO) 0.5 10^3/uL (0.5-4.7); ABSOLUTE MONOCYTES (AUTO) 0.5 10^3/uL (0.1-1.4); ABSOLUTE NEUT (AUTO) 7.8 10^3/uL (1.7-8.2); BASOPHILS % (AUTO) 0.1 % (0-2); EOSINOPHILS % (AUTO) 0.1 % (0-6); HEMATOCRIT 32.7 % (37.9-51.0); HEMOGLOBIN 11.2 g/dL (13.5-17.0); LYMPHOCYTES % (AUTO) 5.3 % (13-45); MEAN CORPUSCULAR HEMOGLOBIN 26.6 pg (27.0-33.4); MEAN CORPUSCULAR HGB CONC 34.1 g/dL (32.0-36.0); MEAN CORPUSCULAR VOLUME 78 fl (80-97); MONOCYTES % (AUTO) 5.5 % (3-13); PLATELET COUNT 347 10^3/uL (150-450); RED CELL DISTRIBUTION WIDTH 14.2 % (11.5-14.0); TOTAL CELLS COUNTED % (AUTO) 100 %; WHITE BLOOD COUNT 8.8 10^3/uL (4.0-10.5)
[2020-03-02 07:12] LABS: ALBUMIN 2.5 g/dL (3.5-5.0); ALKALINE PHOSPHATASE 55 U/L (38-126); ANION GAP 9 (5-19); ASPARTATE AMINO TRANSFERASE 34 U/L (17-59); BILIRUBIN,DIRECT 0.3 mg/dL (0.0-0.4); BILIRUBIN,TOTAL 0.9 mg/dL (0.2-1.3); BLOOD UREA NITROGEN 29 mg/dL (7-20); CALCIUM 8.5 mg/dL (8.4-10.2); CARBON DIOXIDE 19 mmol/L (22-30); CHLORIDE 110 mmol/L (98-107); GLUCOSE 112 mg/dL (75-110); POTASSIUM 5.2 mmol/L (3.6-5.0); TOTAL PROTEIN 5.3 g/dL (6.3-8.2)
[2020-03-02] MEDS: INSULIN LISPRO 100 UNIT/ML 3 ML VIAL SUBCUT SCH ×4 (08:46→21:52)
[2020-03-02] MEDS: ZINC SULFATE 220 MG CAPSULE PO SCH (09:15)
[2020-03-02] MEDS: SPIRONOLACTONE 25 MG TABLET PO SCH (09:16)
[2020-03-02] MEDS: MONTELUKAST SODIUM 10 MG TABLET PO SCH (09:16)
[2020-03-02] MEDS: APIXABAN 5 MG TABLET PO SCH ×2 (09:16→17:38)
[2020-03-02] MEDS: METOPROLOL SUCCINATE 50 MG TAB.SR.24H PO SCH (09:16)
[2020-03-02] MEDS: DEXAMETHASONE SOD PHOSPHATE INJ 4 MG/1 ML VIAL IV SCH (09:16)
[2020-03-02] MEDS: CHOLECALCIFEROL (D3) 1,000 UNIT (25 MCG) TABLET PO SCH (09:17)
[2020-03-02] MEDS: AMLODIPINE BESYLATE 10 MG TABLET PO SCH (09:17)
[2020-03-02] MEDS: ASCORBIC ACID 500 MG TABLET PO SCH ×2 (09:17→17:38)
[2020-03-02] MEDS: CEFTRIAXONE SODIUM 1,000 MG in DEXTROSE 5%-WATER 50 ML IV SCH (09:34)
[2020-03-02] MEDS: AZITHROMYCIN 500 MG in DEXTROSE 5%-WATER 250 ML IV SCH (09:34)
[2020-03-02] MEDS: INSULIN GLARGINE,HUM.REC.ANLOG 1,000 UNIT/10 ML VIAL SUBCUT SCH (17:38)
--- NOTE | 2020-03-02 20:58 | PDOC PROGRESS REPORT ---
Subjective Date:: 03/02/20 Subjective:: Patient seen by the bedside he is not requiring oxygen supplementation chest x- ray from yesterday still demonstrated diffuse infiltrate bilaterally, patient is still on IV dexamethasone, IV azithromycin, he has finished the IV remdesivir, presently restrained because of confusion associated with pulling IV lines, 03/02/2020 Patient continues to have intermittent confusion Reason For Visit: COVID PNEUMONIA Physical Exam Vital Signs: Temp Pulse Resp BP Pulse Ox 97.9 F 70 24 H 120/60 95 03/02/20 10:00 03/02/20 14:00 03/02/20 09:02 03/02/20 09:02 03/02/20 09:02 Intake & Output 03/01/20 03/02/20 03/03/20 06:59 06:59 06:59 Intake Total 1510 1510 310 Balance 1510 1510 310 Weight 65 kg 65.6 kg General appearance: PRESENT: no acute distress Eye exam: PRESENT: PERRLA Respiratory exam: PRESENT: clear to auscultation ken Cardiovascular exam: PRESENT: +S1, +S2 GI/Abdominal exam: PRESENT: soft Neurological exam: PRESENT: alert Results Laboratory Results: 03/02/20 05:24 03/02/20 05:24 03/02/20 03/02/20 05:24 05:24 WBC 8.8 RBC 4.20 L Hgb 11.2 L Hct 32.7 L MCV 78 L MCH 26.6 L MCHC 34.1 RDW 14.2 H Plt Count 347 Seg Neutrophils % 89.0 H Sodium 137.6 Potassium 5.2 H Chloride 110 H Carbon Dioxide 19 L Anion Gap 9 BUN 29 H Creatinine 0.95 Est GFR ( Amer) > 60 Glucose 112 H Calcium 8.5 Total Bilirubin 0.9 AST 34 Alkaline Phosphatase 55 Total Protein 5.3 L Albumin 2.5 L 02/24/20 02/24/20 02/24/20 12:18 12:18 21:10 Creatine Kinase 577 H 462 H CK-MB (CK-2) Troponin I 0.190 02/24/20 02/25/20 02/25/20 21:10 00:29 00:29 Creatine Kinase 403 H CK-MB (CK-2) 3.49 3.43 Troponin I 0.081 0.057 02/25/20 02/25/20 08:34 08:34 Creatine Kinase 360 H CK-MB (CK-2) 4.32 Troponin I 0.045 Impressions: Chest X-Ray 02/29/20 00:00 IMPRESSION: Diffuse bilateral alveolar and interstitial infiltrates are present, progressive since 12/24/2020. No gross pneumothorax or pleural effusion. Assessment & Plan - Diagnosis (1) Acute hypoxemic respiratory failure Is this a current diagnosis for this admission?: Yes Plan: Patient presently not requiring oxygen supplementation the oxygen saturation in ambient air is more than 90% (2) Pneumonia Qualifiers: Pneumonia type: due to unspecified organism Laterality: bilateral Lung location: unspecified part of lung Qualified Code(s): J18.9 - Pneumonia, un specified organism Is this a current diagnosis for this admission?: Yes (3) Hyperosmolar hyperglycemic state (HHS) Is this a current diagnosis for this admission?: Yes Plan: This is resolved (4) Pneumonia due to COVID-19 virus Is this a current diagnosis for this admission?: Yes Plan: Continue IV dexamethasone for a total of 10 days, already finished IV remdesivir - Time Time Spent with patient: 25-34 minutes Level of Care: IMCU Medications reviewed and adjusted accordingly: Yes Anticipated discharge: Home Anticipated DC Timeframe: within 72 hours
[2020-03-03 06:31] LABS: HEMATOCRIT 34.6 % (37.9-51.0); HEMOGLOBIN 11.5 g/dL (13.5-17.0); MEAN CORPUSCULAR HEMOGLOBIN 25.7 pg (27.0-33.4); MEAN CORPUSCULAR HGB CONC 33.3 g/dL (32.0-36.0); MEAN CORPUSCULAR VOLUME 77 fl (80-97); PLATELET COUNT 400 10^3/uL (150-450); RED BLOOD COUNT 4.49 10^6/uL (4.35-5.55); WHITE BLOOD COUNT 8.2 10^3/uL (4.0-10.5)
[2020-03-03 06:58] LABS: ALBUMIN 2.7 g/dL (3.5-5.0); ALKALINE PHOSPHATASE 63 U/L (38-126); ANION GAP 9 (5-19); ASPARTATE AMINO TRANSFERASE 28 U/L (17-59); BILIRUBIN,DIRECT 0.3 mg/dL (0.0-0.4); BILIRUBIN,TOTAL 0.8 mg/dL (0.2-1.3); BLOOD UREA NITROGEN 29 mg/dL (7-20); CARBON DIOXIDE 21 mmol/L (22-30); CHLORIDE 106 mmol/L (98-107); GLUCOSE 101 mg/dL (75-110); POTASSIUM 5.2 mmol/L (3.6-5.0); TOTAL PROTEIN 5.6 g/dL (6.3-8.2)
[2020-03-03 07:12] LABS: ABSOLUTE LYMPHOCYTES# (MANUAL) 0.2 10^3/uL (0.5-4.7); ABSOLUTE MONOCYTES # (MANUAL) 0.7 10^3/uL (0.1-1.4); BASOPHILS % (MANUAL) 0 % (0-2); EOSINOPHILS % (MANUAL) 0 % (0-6); LYMPHOCYTES % (MANUAL) 2 % (13-45); MONOCYTES % (MANUAL) 8 % (3-13); SEGMENTED NEUTROPHILS % (MAN) 90 % (42-78); TOTAL CELLS COUNTED 100
[2020-03-03 07:15] LABS: ANISOCYTOSIS SLIGHT; PLATELET COMMENT ADEQUATE; PLATELET LARGE PRESENT; POIKILOCYTOSIS SLIGHT; POLYCHROMASIA SLIGHT; SCHISTOCYTES SLIGHT; TARGET CELLS 1+; TEAR DROP CELLS SLIGHT
[2020-03-03] MEDS: INSULIN LISPRO 100 UNIT/ML 3 ML VIAL SUBCUT SCH ×4 (10:22→21:59)
[2020-03-03] MEDS: DEXAMETHASONE SOD PHOSPHATE INJ 4 MG/1 ML VIAL IV SCH (10:28)
[2020-03-03] MEDS: AMLODIPINE BESYLATE 10 MG TABLET PO SCH (10:28)
[2020-03-03] MEDS: ASCORBIC ACID 500 MG TABLET PO SCH ×2 (10:29→17:48)
[2020-03-03] MEDS: MONTELUKAST SODIUM 10 MG TABLET PO SCH (10:29)
[2020-03-03] MEDS: APIXABAN 5 MG TABLET PO SCH ×2 (10:29→17:48)
[2020-03-03] MEDS: METOPROLOL SUCCINATE 50 MG TAB.SR.24H PO SCH (10:29)
[2020-03-03] MEDS: CHOLECALCIFEROL (D3) 1,000 UNIT (25 MCG) TABLET PO SCH (10:29)
[2020-03-03] MEDS: SPIRONOLACTONE 25 MG TABLET PO SCH (10:29)
[2020-03-03] MEDS: ZINC SULFATE 220 MG CAPSULE PO SCH (10:29)
[2020-03-03] MEDS: INSULIN GLARGINE,HUM.REC.ANLOG 1,000 UNIT/10 ML VIAL SUBCUT SCH (17:48)
--- NOTE | 2020-03-03 21:33 | PDOC PROGRESS REPORT ---
Subjective Date:: 03/03/20 Subjective:: Patient seen by the bedside he is not requiring oxygen supplementation chest x- ray from yesterday still demonstrated diffuse infiltrate bilaterally, patient is still on IV dexamethasone, IV azithromycin, he has finished the IV remdesivir, presently restrained because of confusion associated with pulling IV lines, 03/02/2020 Patient continues to have intermittent confusion 03/03/2020 Patient is less confused today, he continues to require restraint Reason For Visit: COVID PNEUMONIA Physical Exam Vital Signs: Temp Pulse Resp BP Pulse Ox 97.4 F 68 18 129/63 H 91 L 03/03/20 15:31 03/03/20 19:00 03/03/20 15:31 03/03/20 15:31 03/03/20 15:31 Intake & Output 03/02/20 03/03/20 03/04/20 06:59 06:59 06:59 Intake Total 1510 310 120 Balance 1510 310 120 Weight 65.6 kg 63.9 kg General appearance: PRESENT: no acute distress Eye exam: PRESENT: PERRLA Respiratory exam: PRESENT: clear to auscultation ken Cardiovascular exam: PRESENT: +S1, +S2 GI/Abdominal exam: PRESENT: soft Neurological exam: PRESENT: alert Results Laboratory Results: 03/03/20 05:07 03/03/20 05:07 03/03/20 03/03/20 05:07 05:07 WBC 8.2 RBC 4.49 Hgb 11.5 L Hct 34.6 L MCV 77 L MCH 25.7 L MCHC 33.3 RDW 14.0 Plt Count 400 Seg Neutrophils % Not Reportable Sodium 136.0 L Potassium 5.2 H Chloride 106 Carbon Dioxide 21 L Anion Gap 9 BUN 29 H Creatinine 0.93 Est GFR ( Amer) > 60 Glucose 101 Calcium 9.0 Total Bilirubin 0.8 AST 28 Alkaline Phosphatase 63 Total Protein 5.6 L Albumin 2.7 L 02/24/20 02/24/20 02/24/20 12:18 12:18 21:10 Creatine Kinase 577 H 462 H CK-MB (CK-2) Troponin I 0.190 02/24/20 02/25/20 02/25/20 21:10 00:29 00:29 Creatine Kinase 403 H CK-MB (CK-2) 3.49 3.43 Troponin I 0.081 0.057 02/25/20 02/25/20 08:34 08:34 Creatine Kinase 360 H CK-MB (CK-2) 4.32 Troponin I 0.045 Impressions: Chest X-Ray 02/29/20 00:00 IMPRESSION: Diffuse bilateral alveolar and interstitial infiltrates are present, progressive since 12/24/2020. No gross pneumothorax or pleural effusion. Assessment & Plan - Diagnosis (1) Acute hypoxemic respiratory failure Is this a current diagnosis for this admission?: Yes Plan: Patient presently not requiring oxygen supplementation the oxygen saturation in ambient air is more than 90% (2) Pneumonia Qualifiers: Pneumonia type: due to unspecified organism Laterality: bilateral Lung location: unspecified part of lung Qualified Code(s): J18.9 - Pneumonia, unspecified organism Is this a current diagnosis for this admission?: Yes (3) Hyperosmolar hyperglycemic state (HHS) Is this a current diagnosis for this admission?: Yes Plan: This is resolved (4) Pneumonia due to COVID-19 virus Is this a current diagnosis for this admission?: Yes Plan: Continue IV dexamethasone for a total of 10 days, already finished IV remdesivir - Time Time Spent with patient: 25-34 minutes Level of Care: IMCU Medications reviewed and adjusted accordingly: Yes Anticipated discharge: Home Anticipated DC Timeframe: Other
[2020-03-04 06:39] LABS: HEMATOCRIT 35.6 % (37.9-51.0); HEMOGLOBIN 11.9 g/dL (13.5-17.0); MEAN CORPUSCULAR HEMOGLOBIN 25.8 pg (27.0-33.4); MEAN CORPUSCULAR HGB CONC 33.4 g/dL (32.0-36.0); MEAN CORPUSCULAR VOLUME 77 fl (80-97); PLATELET COUNT 384 10^3/uL (150-450); RED BLOOD COUNT 4.62 10^6/uL (4.35-5.55); RED CELL DISTRIBUTION WIDTH 14.5 % (11.5-14.0); WHITE BLOOD COUNT 9.7 10^3/uL (4.0-10.5)
[2020-03-04 06:53] LABS: ALKALINE PHOSPHATASE 64 U/L (38-126); ANION GAP 8 (5-19); ASPARTATE AMINO TRANSFERASE 28 U/L (17-59); BILIRUBIN,DIRECT 0.2 mg/dL (0.0-0.4); BILIRUBIN,TOTAL 0.7 mg/dL (0.2-1.3); BLOOD UREA NITROGEN 37 mg/dL (7-20); CALCIUM 9.2 mg/dL (8.4-10.2); CARBON DIOXIDE 21 mmol/L (22-30); CHLORIDE 109 mmol/L (98-107); POTASSIUM 4.5 mmol/L (3.6-5.0); TOTAL PROTEIN 6.3 g/dL (6.3-8.2)
[2020-03-04 06:57] LABS: ABSOLUTE LYMPHOCYTES# (MANUAL) 0.5 10^3/uL (0.5-4.7); ABSOLUTE MONOCYTES # (MANUAL) 0.4 10^3/uL (0.1-1.4); BASOPHILS % (MANUAL) 0 % (0-2); EOSINOPHILS % (MANUAL) 0 % (0-6); LYMPHOCYTES % (MANUAL) 5 % (13-45); MONOCYTES % (MANUAL) 4 % (3-13); SEGMENTED NEUTROPHILS % (MAN) 91 % (42-78); TOTAL CELLS COUNTED 100
[2020-03-04 06:58] LABS: TARGET CELLS 1+
[2020-03-04 06:59] LABS: ANISOCYTOSIS SLIGHT; PLATELET COMMENT ADEQUATE; POIKILOCYTOSIS 1+
[2020-03-04 07:01] LABS: GLUCOSE 48 mg/dL (75-110)
[2020-03-04] MEDS: INSULIN LISPRO 100 UNIT/ML 3 ML VIAL SUBCUT SCH ×4 (08:10→22:05)
[2020-03-04] MEDS: DEXAMETHASONE SOD PHOSPHATE INJ 4 MG/1 ML VIAL IV SCH (10:27)
[2020-03-04] MEDS: METOPROLOL SUCCINATE 50 MG TAB.SR.24H PO SCH (10:27)
[2020-03-04] MEDS: CHOLECALCIFEROL (D3) 1,000 UNIT (25 MCG) TABLET PO SCH (10:27)
[2020-03-04] MEDS: ZINC SULFATE 220 MG CAPSULE PO SCH (10:27)
[2020-03-04] MEDS: SPIRONOLACTONE 25 MG TABLET PO SCH (10:27)
[2020-03-04] MEDS: APIXABAN 5 MG TABLET PO SCH ×2 (10:27→17:16)
[2020-03-04] MEDS: ASCORBIC ACID 500 MG TABLET PO SCH ×2 (10:27→17:16)
[2020-03-04] MEDS: AMLODIPINE BESYLATE 10 MG TABLET PO SCH (10:27)
[2020-03-04] MEDS: MONTELUKAST SODIUM 10 MG TABLET PO SCH (10:27)
--- NOTE | 2020-03-04 17:17 | PDOC PROGRESS REPORT ---
Subjective Date:: 03/04/20 Subjective:: Patient seen by the bedside he is not requiring oxygen supplementation chest x- ray from yesterday still demonstrated diffuse infiltrate bilaterally, patient is still on IV dexamethasone, IV azithromycin, he has finished the IV remdesivir, presently restrained because of confusion associated with pulling IV lines, 03/02/2020 Patient continues to have intermittent confusion 03/03/2020 Patient is less confused today, he continues to require restraint 03/04/2020 Patient seen by the bedside,There is no new complaints still confused though improving Reason For Visit: COVID PNEUMONIA Physical Exam Vital Signs: Temp Pulse Resp BP Pulse Ox 97.5 F 62 18 105/67 98 03/04/20 15:55 03/04/20 15:55 03/04/20 15:55 03/04/20 15:55 03/04/20 15:55 Intake & Output 03/03/20 03/04/20 03/05/20 06:59 06:59 06:59 Intake Total 310 120 260 Balance 310 120 260 Weight 63.9 kg 61.2 kg 61.2 kg General appearance: PRESENT: no acute distress Eye exam: PRESENT: PERRLA Respiratory exam: PRESENT: clear to auscultation ken Cardiovascular exam: PRESENT: +S1, +S2 GI/Abdominal exam: PRESENT: soft Neurological exam: PRESENT: alert Results Laboratory Results: 03/04/20 05:25 03/04/20 05:25 03/04/20 03/04/20 05:25 05:25 WBC 9.7 RBC 4.62 Hgb 11.9 L Hct 35.6 L MCV 77 L MCH 25.8 L MCHC 33.4 RDW 14.5 H Plt Count 384 Seg Neutrophils % Not Reportable Sodium 138.3 Potassium 4.5 Chloride 109 H Carbon Dioxide 21 L Anion Gap 8 BUN 37 H Creatinine 1.22 Est GFR ( Amer) > 60 Glucose 48 L Calcium 9.2 Total Bilirubin 0.7 AST 28 Alkaline Phosphatase 64 Total Protein 6.3 Albumin 3.0 L 02/24/20 02/24/20 02/24/20 12:18 12:18 21:10 Creatine Kinase 577 H 462 H CK-MB (CK-2) Troponin I 0.190 02/24/20 02/25/20 02/25/20 21:10 00:29 00:29 Creatine Kinase 403 H CK-MB (CK-2) 3.49 3.43 Troponin I 0.081 0.057 02/25/20 02/25/20 08:34 08:34 Creatine Kinase 360 H CK-MB (CK-2) 4.32 Troponin I 0.045 Impressions: Chest X-Ray 02/29/20 00:00 IMPRESSION: Diffuse bilateral alveolar and interstitial infiltrates are present, progressive since 12/24/2020. No gross pneumothorax or pleural effusion. Assessment & Plan - Diagnosis (1) Acute hypoxemic respiratory failure Is this a current diagnosis for this admission?: Yes Plan: Patient presently not requiring oxygen supplementation the oxygen saturation in ambient air is more than 90% (2) Pneumonia Qualifiers: Pneumonia type: due to unspecified organism Laterality: bilateral Lung location: unspecified part of lung Qualified Code(s): J18.9 - Pneumonia, unspecified organism Is this a current diagnosis for this admission?: Yes (3) Hyperosmolar hyperglycemic state (HHS) Is this a current diagnosis for this admission?: Yes Plan: This is resolved (4) Pneumonia due to COVID-19 virus Is this a current diagnosis for this admission?: Yes Plan: Continue IV dexamethasone for a total of 10 days, already finished IV remdesivir - Time Time Spent with patient: 25-34 minutes Level of Care: IMCU Medications reviewed and adjusted accordingly: Yes Anticipated discharge: Home Anticipated DC Timeframe: within 72 hours - Inpatient Certification Based on my medical assessment, after consideration of the patient's comorbidities, presenting symptoms, or acuity I expect that the services needed warrant INPATIENT care.: Yes I certify that my determination is in accordance with my understanding of Medicare's requirements for reasonable and necessary INPATIENT services [42 CFR 412.3e].: Yes
[2020-03-05 06:29] LABS: ABSOLUTE LYMPHOCYTES (AUTO) 0.5 10^3/uL (0.5-4.7); ABSOLUTE MONOCYTES (AUTO) 0.4 10^3/uL (0.1-1.4); ABSOLUTE NEUT (AUTO) 6.7 10^3/uL (1.7-8.2); BASOPHILS % (AUTO) 0.6 % (0-2); EOSINOPHILS % (AUTO) 0.1 % (0-6); HEMATOCRIT 39.2 % (37.9-51.0); HEMOGLOBIN 13.3 g/dL (13.5-17.0); LYMPHOCYTES % (AUTO) 6.1 % (13-45); MEAN CORPUSCULAR HEMOGLOBIN 26.2 pg (27.0-33.4); MEAN CORPUSCULAR HGB CONC 33.8 g/dL (32.0-36.0); MEAN CORPUSCULAR VOLUME 78 fl (80-97); MONOCYTES % (AUTO) 5.2 % (3-13); PLATELET COUNT 357 10^3/uL (150-450); RED BLOOD COUNT 5.06 10^6/uL (4.35-5.55); RED CELL DISTRIBUTION WIDTH 14.7 % (11.5-14.0); TOTAL CELLS COUNTED % (AUTO) 100 %; WHITE BLOOD COUNT 7.6 10^3/uL (4.0-10.5)
[2020-03-05 06:47] LABS: ALBUMIN 3.1 g/dL (3.5-5.0); ALKALINE PHOSPHATASE 67 U/L (38-126); ANION GAP 6 (5-19); ASPARTATE AMINO TRANSFERASE 26 U/L (17-59); BILIRUBIN,DIRECT 0.2 mg/dL (0.0-0.4); BILIRUBIN,TOTAL 0.7 mg/dL (0.2-1.3); BLOOD UREA NITROGEN 34 mg/dL (7-20); CALCIUM 9.2 mg/dL (8.4-10.2); CARBON DIOXIDE 23 mmol/L (22-30); CHLORIDE 108 mmol/L (98-107); GLUCOSE 119 mg/dL (75-110); POTASSIUM 4.8 mmol/L (3.6-5.0); TOTAL PROTEIN 6.5 g/dL (6.3-8.2)
[2020-03-05] MEDS: INSULIN LISPRO 100 UNIT/ML 3 ML VIAL SUBCUT SCH ×4 (09:08→21:57)
[2020-03-05] MEDS: DEXAMETHASONE SOD PHOSPHATE INJ 4 MG/1 ML VIAL IV SCH (09:45)
[2020-03-05] MEDS: ZINC SULFATE 220 MG CAPSULE PO SCH (09:45)
[2020-03-05] MEDS: CHOLECALCIFEROL (D3) 1,000 UNIT (25 MCG) TABLET PO SCH (09:45)
[2020-03-05] MEDS: AMLODIPINE BESYLATE 10 MG TABLET PO SCH (09:45)
[2020-03-05] MEDS: SPIRONOLACTONE 25 MG TABLET PO SCH (09:45)
[2020-03-05] MEDS: ASCORBIC ACID 500 MG TABLET PO SCH ×2 (09:46→17:01)
[2020-03-05] MEDS: APIXABAN 5 MG TABLET PO SCH ×2 (09:46→17:01)
[2020-03-05] MEDS: METOPROLOL SUCCINATE 50 MG TAB.SR.24H PO SCH (09:46)
[2020-03-05] MEDS: MONTELUKAST SODIUM 10 MG TABLET PO SCH (09:46)
--- NOTE | 2020-03-05 19:52 | PDOC PROGRESS REPORT ---
Subjective Date:: 03/05/20 Subjective:: Patient is alert, still confused, still requiring restraints, he will be finishi ng IV dexamethasone tomorrow, will DC restraints tomorrow and prepare for discharge Reason For Visit: COVID PNEUMONIA Physical Exam Vital Signs: Temp Pulse Resp BP Pulse Ox 97.3 F 70 18 126/58 H 88 L 03/05/20 08:40 03/05/20 15:46 03/05/20 15:46 03/05/20 15:46 03/05/20 15:46 Intake & Output 03/04/20 03/05/20 03/06/20 06:59 06:59 06:59 Intake Total 120 260 220 Balance 120 260 220 Weight 61.2 kg 60.6 kg General appearance: PRESENT: no acute distress Eye exam: PRESENT: PERRLA Respiratory exam: PRESENT: clear to auscultation ken Cardiovascular exam: PRESENT: +S1, +S2 GI/Abdominal exam: PRESENT: soft Neurological exam: PRESENT: alert Results Laboratory Results: 03/05/20 05:26 03/05/20 05:26 03/05/20 03/05/20 05:26 05:26 WBC 7.6 RBC 5.06 Hgb 13.3 L Hct 39.2 MCV 78 L MCH 26.2 L MCHC 33.8 RDW 14.7 H Plt Count 357 Seg Neutrophils % 88.0 H Sodium 136.8 L Potassium 4.8 Chloride 108 H Carbon Dioxide 23 Anion Gap 6 BUN 34 H Creatinine 1.24 Est GFR ( Amer) > 60 Glucose 119 H Calcium 9.2 Total Bilirubin 0.7 AST 26 Alkaline Phosphatase 67 Total Protein 6.5 Albumin 3.1 L 02/24/20 02/24/20 02/24/20 12:18 12:18 21:10 Creatine Kinase 577 H 462 H CK-MB (CK-2) Troponin I 0.190 02/24/20 02/25/20 02/25/20 21:10 00:29 00:29 Creatine Kinase 403 H CK-MB (CK-2) 3.49 3.43 Troponin I 0.081 0.057 02/25/20 02/25/20 08:34 08:34 Creatine Kinase 360 H CK-MB (CK-2) 4.32 Troponin I 0.045 Impressions: Chest X-Ray 02/29/20 00:00 IMPRESSION: Diffuse bilateral alveolar and interstitial infiltrates are present, progressive since 12/24/2020. No gross pneumothorax or pleural effusion. Assessment & Plan - Diagnosis (1) Acute hypoxemic respiratory failure Is this a current diagnosis for this admission?: Yes Plan: Patient presently not requiring oxygen supplementation the oxygen saturation in ambient air is more than 90% (2) Pneumonia Qualifiers: Pneumonia type: due to unspecified organism Laterality: bilateral Lung location: unspecified part of lung Qualified Code(s): J18.9 - Pneumonia, unspecified organism Is this a current diagnosis for this admission?: Yes (3) Hyperosmolar hyperglycemic state (HHS) Is this a current diagnosis for this admission?: Yes Plan: This is resolved (4) Pneumonia due to COVID-19 virus Is this a current diagnosis for this admission?: Yes Plan: Continue IV dexamethasone for a total of 10 days, already finished IV remdesivir - Time Time Spent with patient: 25-34 minutes Level of Care: IMCU Medications reviewed and adjusted accordingly: Yes Anticipated discharge: Home Anticipated DC Timeframe: within 72 hours
[2020-03-06 05:48] LABS: HEMATOCRIT 38.2 % (37.9-51.0); HEMOGLOBIN 12.7 g/dL (13.5-17.0); MEAN CORPUSCULAR HEMOGLOBIN 25.8 pg (27.0-33.4); MEAN CORPUSCULAR HGB CONC 33.2 g/dL (32.0-36.0); MEAN CORPUSCULAR VOLUME 78 fl (80-97); PLATELET COUNT 355 10^3/uL (150-450); RED BLOOD COUNT 4.92 10^6/uL (4.35-5.55); RED CELL DISTRIBUTION WIDTH 14.4 % (11.5-14.0); WHITE BLOOD COUNT 10.2 10^3/uL (4.0-10.5)
[2020-03-06 06:12] LABS: ABSOLUTE LYMPHOCYTES# (MANUAL) 0.7 10^3/uL (0.5-4.7); ABSOLUTE MONOCYTES # (MANUAL) 0.2 10^3/uL (0.1-1.4); BASOPHILS % (MANUAL) 0 % (0-2); EOSINOPHILS % (MANUAL) 0 % (0-6); LYMPHOCYTES % (MANUAL) 6 % (13-45); MONOCYTES % (MANUAL) 2 % (3-13); SEGMENTED NEUTROPHILS % (MAN) 91 % (42-78); TOTAL CELLS COUNTED 100
[2020-03-06 06:13] LABS: ANISOCYTOSIS SLIGHT; PLATELET COMMENT ADEQUATE; POIKILOCYTOSIS 1+; TARGET CELLS 1+
[2020-03-06 06:27] LABS: ALBUMIN 3.2 g/dL (3.5-5.0); ALKALINE PHOSPHATASE 65 U/L (38-126); ANION GAP 9 (5-19); ASPARTATE AMINO TRANSFERASE 32 U/L (17-59); BILIRUBIN,DIRECT 0.3 mg/dL (0.0-0.4); BILIRUBIN,TOTAL 0.8 mg/dL (0.2-1.3); BLOOD UREA NITROGEN 41 mg/dL (7-20); CALCIUM 9.4 mg/dL (8.4-10.2); CARBON DIOXIDE 19 mmol/L (22-30); CHLORIDE 112 mmol/L (98-107); GLUCOSE 160 mg/dL (75-110); POTASSIUM 4.9 mmol/L (3.6-5.0); TOTAL PROTEIN 6.7 g/dL (6.3-8.2)
[2020-03-06] MEDS: INSULIN LISPRO 100 UNIT/ML 3 ML VIAL SUBCUT SCH ×4 (08:52→23:39)
[2020-03-06] MEDS: AMLODIPINE BESYLATE 10 MG TABLET PO SCH (10:15)
[2020-03-06] MEDS: MONTELUKAST SODIUM 10 MG TABLET PO SCH (10:15)
[2020-03-06] MEDS: METOPROLOL SUCCINATE 50 MG TAB.SR.24H PO SCH (10:15)
[2020-03-06] MEDS: SPIRONOLACTONE 25 MG TABLET PO SCH (10:15)
[2020-03-06] MEDS: APIXABAN 5 MG TABLET PO SCH ×2 (10:15→17:39)
[2020-03-06] MEDS: ASCORBIC ACID 500 MG TABLET PO SCH ×2 (10:15→17:39)
[2020-03-06] MEDS: CHOLECALCIFEROL (D3) 1,000 UNIT (25 MCG) TABLET PO SCH (10:15)
[2020-03-06] MEDS: ZINC SULFATE 220 MG CAPSULE PO SCH (10:15)
--- NOTE | 2020-03-06 21:54 | PDOC PROGRESS REPORT ---
Subjective Date:: 03/06/20 Subjective:: Patient is alert, still confused, still requiring restraints, he will be finishi ng IV dexamethasone tomorrow, will DC restraints tomorrow and prepare for discharge 03/06/2020 Patient finished the IV dexamethasone today, is still confused otherwise is stable, will discharge home on Monday morning Reason For Visit: COVID PNEUMONIA Physical Exam Vital Signs: Temp Pulse Resp BP Pulse Ox 97.5 F 66 17 125/68 100 03/06/20 11:24 03/06/20 14:00 03/06/20 11:24 03/06/20 11:24 03/06/20 11:24 Intake & Output 03/05/20 03/06/20 03/07/20 06:59 06:59 06:59 Intake Total 260 220 Output Total 100 Balance 260 120 Weight 60.6 kg 59.2 kg 59.2 kg General appearance: PRESENT: no acute distress Eye exam: PRESENT: PERRLA Respiratory exam: PRESENT: clear to auscultation ken Cardiovascular exam: PRESENT: +S1, +S2 GI/Abdominal exam: PRESENT: soft Neurological exam: PRESENT: alert Results Laboratory Results: 03/06/20 05:11 03/06/20 05:11 03/06/20 03/06/20 05:11 05:11 WBC 10.2 RBC 4.92 Hgb 12.7 L Hct 38.2 MCV 78 L MCH 25.8 L MCHC 33.2 RDW 14.4 H Plt Count 355 Seg Neutrophils % Not Reportable Sodium 139.7 Potassium 4.9 Chloride 112 H Carbon Dioxide 19 L Anion Gap 9 BUN 41 H Creatinine 1.22 Est GFR ( Amer) > 60 Glucose 160 H Calcium 9.4 Total Bilirubin 0.8 AST 32 Alkaline Phosphatase 65 Total Protein 6.7 Albumin 3.2 L 02/24/20 02/24/20 02/24/20 12:18 12:18 21:10 Creatine Kinase 577 H 462 H CK-MB (CK-2) Troponin I 0.190 02/24/20 02/25/20 02/25/20 21:10 00:29 00:29 Creatine Kinase 403 H CK-MB (CK-2) 3.49 3.43 Troponin I 0.081 0.057 02/25/20 02/25/20 08:34 08:34 Creatine Kinase 360 H CK-MB (CK-2) 4.32 Troponin I 0.045 Impressions: Chest X-Ray 02/29/20 00:00 IMPRESSION: Diffuse bilateral alveolar and interstitial infiltrates are present, progressive since 12/24/2020. No gross pneumothorax or pleural effusion. Assessment & Plan - Diagnosis (1) Acute hypoxemic respiratory failure Is this a current diagnosis for this admission?: Yes Plan: Patient presently not requiring oxygen supplementation the oxygen saturation in ambient air is more than 90% (2) Pneumonia Qualifiers: Pneumonia type: due to unspecified organism Laterality: bilateral Lung location: unspecified part of lung Qualified Code(s): J18.9 - Pneumonia, unspecified organism Is this a current diagnosis for this admission?: Yes (3) Hyperosmolar hyperglycemic state (HHS) Is this a current diagnosis for this admission?: Yes Plan: This is resolved (4) Pneumonia due to COVID-19 virus Is this a current diagnosis for this admission?: Yes - Time Time Spent with patient: 35 or more minutes Level of Care: IMCU Medications reviewed and adjusted accordingly: Yes Anticipated discharge: Home - Inpatient Certification Based on my medical assessment, after consideration of the patient's comorbidities, presenting symptoms, or acuity I expect that the services needed warrant INPATIENT care.: Yes I certify that my determination is in accordance with my understanding of Medicare's requirements for reasonable and necessary INPATIENT services [42 CFR 412.3e].: Yes
[2020-03-07 05:31] LABS: ABSOLUTE LYMPHOCYTES (AUTO) 0.8 10^3/uL (0.5-4.7); ABSOLUTE MONOCYTES (AUTO) 0.5 10^3/uL (0.1-1.4); ABSOLUTE NEUT (AUTO) 8.2 10^3/uL (1.7-8.2); BASOPHILS % (AUTO) 0.4 % (0-2); EOSINOPHILS % (AUTO) 0.1 % (0-6); HEMATOCRIT 37.1 % (37.9-51.0); HEMOGLOBIN 12.4 g/dL (13.5-17.0); LYMPHOCYTES % (AUTO) 8.2 % (13-45); MEAN CORPUSCULAR HEMOGLOBIN 25.9 pg (27.0-33.4); MEAN CORPUSCULAR HGB CONC 33.5 g/dL (32.0-36.0); MEAN CORPUSCULAR VOLUME 77 fl (80-97); MONOCYTES % (AUTO) 4.8 % (3-13); PLATELET COUNT 316 10^3/uL (150-450); RED CELL DISTRIBUTION WIDTH 14.6 % (11.5-14.0); SEGMENTED NEUTROPHILS % (AUTO) 86.5 % (42-78); TOTAL CELLS COUNTED % (AUTO) 100 %; WHITE BLOOD COUNT 9.5 10^3/uL (4.0-10.5)
[2020-03-07 05:54] LABS: ALBUMIN 2.7 g/dL (3.5-5.0); ALKALINE PHOSPHATASE 63 U/L (38-126); ANION GAP 7 (5-19); ASPARTATE AMINO TRANSFERASE 29 U/L (17-59); BILIRUBIN,DIRECT 0.2 mg/dL (0.0-0.4); BILIRUBIN,TOTAL 0.6 mg/dL (0.2-1.3); BLOOD UREA NITROGEN 45 mg/dL (7-20); CALCIUM 9.1 mg/dL (8.4-10.2); CARBON DIOXIDE 21 mmol/L (22-30); CHLORIDE 111 mmol/L (98-107); GLUCOSE 100 mg/dL (75-110); POTASSIUM 4.4 mmol/L (3.6-5.0); TOTAL PROTEIN 5.7 g/dL (6.3-8.2)
[2020-03-07] MEDS: INSULIN LISPRO 100 UNIT/ML 3 ML VIAL SUBCUT SCH ×4 (08:47→23:00)
[2020-03-07] MEDS: METOPROLOL SUCCINATE 50 MG TAB.SR.24H PO SCH (10:39)
[2020-03-07] MEDS: ASCORBIC ACID 500 MG TABLET PO SCH ×2 (10:39→17:18)
[2020-03-07] MEDS: MONTELUKAST SODIUM 10 MG TABLET PO SCH (10:39)
[2020-03-07] MEDS: ZINC SULFATE 220 MG CAPSULE PO SCH (10:39)
[2020-03-07] MEDS: APIXABAN 5 MG TABLET PO SCH ×2 (10:39→17:18)
[2020-03-07] MEDS: AMLODIPINE BESYLATE 10 MG TABLET PO SCH (10:40)
[2020-03-07] MEDS: SPIRONOLACTONE 25 MG TABLET PO SCH (10:40)
[2020-03-07] MEDS: CHOLECALCIFEROL (D3) 1,000 UNIT (25 MCG) TABLET PO SCH (10:40)
[2020-03-07] MEDS ORDERED: LACTULOSE SYRUP 20 GM/30 ML UDCUP PO ONE (14:00)
--- NOTE | 2020-03-07 22:03 | PDOC PROGRESS REPORT ---
Subjective Date:: 03/07/20 Subjective:: Nursing staff reported more sleeping so far today. Concern for poor p.o intake a nd constipation raised. Patient denied chest pain or difficulty with breathing. Reason For Visit: COVID PNEUMONIA Physical Exam Vital Signs: Temp Pulse Resp BP Pulse Ox 97.5 F 80 16 105/58 L 94 03/07/20 16:17 03/07/20 16:17 03/07/20 16:17 03/07/20 16:17 03/07/20 16:17 Intake & Output 03/06/20 03/07/20 03/08/20 06:59 06:59 06:59 Intake Total 220 237 Output Total 100 125 Balance 120 -125 237 Weight 59.2 kg 59 kg General appearance: PRESENT: no acute distress Head exam: PRESENT: atraumatic, normocephalic Eye exam: PRESENT: conjunctiva pink, scleral icterus Respiratory exam: PRESENT: clear to auscultation ken, decreased breath sounds - at lung bases Cardiovascular exam: PRESENT: RRR, +S1, +S2. ABSENT: diastolic murmur, systolic murmur Vascular exam: ABSENT: pallor Extremities exam: ABSENT: pedal edema Neurological exam: PRESENT: alert, awake Skin exam: PRESENT: dry, warm Results Laboratory Results: 03/07/20 04:54 03/07/20 04:54 03/07/20 03/07/20 04:54 04:54 WBC 9.5 RBC 4.80 Hgb 12.4 L Hct 37.1 L MCV 77 L MCH 25.9 L MCHC 33.5 RDW 14.6 H Plt Count 316 Seg Neutrophils % 86.5 H Sodium 139.1 Potassium 4.4 Chloride 111 H Carbon Dioxide 21 L Anion Gap 7 BUN 45 H Creatinine 1.30 H Est GFR ( Amer) > 60 Glucose 100 Calcium 9.1 Total Bilirubin 0.6 AST 29 Alkaline Phosphatase 63 Total Protein 5.7 L Albumin 2.7 L 02/24/20 02/24/20 02/24/20 12:18 12:18 21:10 Creatine Kinase 577 H 462 H CK-MB (CK-2) Troponin I 0.190 02/24/20 02/25/20 02/25/20 21:10 00:29 00:29 Creatine Kinase 403 H CK-MB (CK-2) 3.49 3.43 Troponin I 0.081 0.057 02/25/20 02/25/20 08:34 08:34 Creatine Kinase 360 H CK-MB (CK-2) 4.32 Troponin I 0.045 Impressions: Chest X-Ray 02/29/20 00:00 IMPRESSION: Diffuse bilateral alveolar and interstitial infiltrates are present, progressive since 12/24/2020. No gross pneumothorax or pleural effusion. Assessment & Plan - Diagnosis (1) Pneumonia due to COVID-19 virus Is this a current diagnosis for this admission?: Yes Plan: Continue current medication management and supportive therapy. (2) Acute hypoxemic respiratory failure Is this a current diagnosis for this admission?: Yes Plan: Continue current medication management and supportive therapy. (3) Acute renal failure (ARF) Qualifiers: Acute renal failure type: unspecified Qualified Code(s): N17.9 - Acute kidney failure, unspecified Is this a current diagnosis for this admission?: Yes Plan: Continue current medication management. (4) Constipation Qualifiers: Constipation type: slow transit constipation Qualified Code(s): K59.01 - Slow transit constipation Is this a current diagnosis for this admission?: Yes Plan: Administer Lactulose 20 gm /30 ml p.o x 1 dose. Start on Colace 200 mg p.o qhs. Monitor for diarrhea. Encouraged increase oral intake. (5) Paroxysmal A-fib Is this a current diagnosis for this admission?: Yes Plan: Continue current medication management. (6) HTN (hypertension) Qualifiers: Hypertension type: essential hypertension Qualified Code(s): I10 - Essential (primary) hypertension Is this a current diagnosis for this admission?: Yes Plan: Continue current medication management. - Time Time Spent with patient: 25-34 minutes Level of Care: IMCU Medications reviewed and adjusted accordingly: Yes Anticipated discharge: SNF Anticipated DC Timeframe: within 72 hours - Inpatient Certification Based on my medical assessment, after consideration of the patient's comorbidities, presenting symptoms, or acuity I expect that the services needed warrant INPATIENT care.: Yes I certify that my determination is in accordance with my understanding of Medicare's requirements for reasonable and necessary INPATIENT services [42 CFR 412.3e].: Yes Medical Necessity: Significant Comorbidiites Make Outpatient Treatment Too Risky, Need Close Monitoring Due to Risk of Patient Decompensation, Need For IV Fluids, Need For Continuous Telemetry Monitoring, Risk of Complication if Not Cared For in Hospital, Risk of Diagnosis Which Will Require Inpatient Eval/Care/Monitoring Post Hospital Care: D/C Drum Operator Documentation, D/C or Transfer Summary - Plan Summary Plan Summary: Continue current medication management and supportive therapy. Obtain CB with diff and CMP in AM.
[2020-03-07] MEDS: DOCUSATE SODIUM 100 MG CAPSULE PO SCH (23:10)
[2020-03-08 06:06] LABS: HEMATOCRIT 38.4 % (37.9-51.0); HEMOGLOBIN 12.3 g/dL (13.5-17.0); MEAN CORPUSCULAR HGB CONC 32.1 g/dL (32.0-36.0); MEAN CORPUSCULAR VOLUME 78 fl (80-97); PLATELET COUNT 279 10^3/uL (150-450); RED BLOOD COUNT 4.93 10^6/uL (4.35-5.55); RED CELL DISTRIBUTION WIDTH 14.8 % (11.5-14.0); WHITE BLOOD COUNT 12.4 10^3/uL (4.0-10.5)
[2020-03-08 06:27] LABS: ALKALINE PHOSPHATASE 61 U/L (38-126); ANION GAP 10 (5-19); ASPARTATE AMINO TRANSFERASE 45 U/L (17-59); BILIRUBIN,DIRECT 0.4 mg/dL (0.0-0.4); BILIRUBIN,TOTAL 1.1 mg/dL (0.2-1.3); BLOOD UREA NITROGEN 45 mg/dL (7-20); CALCIUM 9.5 mg/dL (8.4-10.2); CARBON DIOXIDE 17 mmol/L (22-30); CHLORIDE 113 mmol/L (98-107); GLUCOSE 144 mg/dL (75-110); POTASSIUM 5.2 mmol/L (3.6-5.0); TOTAL PROTEIN 6.2 g/dL (6.3-8.2)
[2020-03-08 07:26] LABS: ABSOLUTE LYMPHOCYTES# (MANUAL) 0.6 10^3/uL (0.5-4.7); ABSOLUTE MONOCYTES # (MANUAL) 0.2 10^3/uL (0.1-1.4); BASOPHILS % (MANUAL) 0 % (0-2); EOSINOPHILS % (MANUAL) 0 % (0-6); LYMPHOCYTES % (MANUAL) 5 % (13-45); MONOCYTES % (MANUAL) 2 % (3-13); SEGMENTED NEUTROPHILS % (MAN) 93 % (42-78); TOTAL CELLS COUNTED 100
[2020-03-08 07:27] LABS: ANISOCYTOSIS SLIGHT; HYPOCHROMASIA SLIGHT; TARGET CELLS SLIGHT
[2020-03-08 07:28] LABS: PLATELET CLUMPS PRESENT; PLATELET COMMENT ADEQUATE
[2020-03-08] MEDS: INSULIN LISPRO 100 UNIT/ML 3 ML VIAL SUBCUT SCH ×4 (09:02→21:30)
[2020-03-08] MEDS: METOPROLOL SUCCINATE 50 MG TAB.SR.24H PO SCH (09:08)
[2020-03-08] MEDS: AMLODIPINE BESYLATE 10 MG TABLET PO SCH (09:09)
[2020-03-08] MEDS: MONTELUKAST SODIUM 10 MG TABLET PO SCH (09:09)
[2020-03-08] MEDS: DOCUSATE SODIUM 100 MG CAPSULE PO SCH (09:11)
[2020-03-08] MEDS: CHOLECALCIFEROL (D3) 1,000 UNIT (25 MCG) TABLET PO SCH (09:11)
[2020-03-08] MEDS: APIXABAN 5 MG TABLET PO SCH ×2 (09:11→17:42)
[2020-03-08] MEDS: ASCORBIC ACID 500 MG TABLET PO SCH ×2 (09:11→17:42)
[2020-03-08] MEDS: ZINC SULFATE 220 MG CAPSULE PO SCH (09:11)
[2020-03-08] MEDS: SPIRONOLACTONE 25 MG TABLET PO SCH (09:11)
--- NOTE | 2020-03-08 16:38 | PDOC PROGRESS REPORT ---
Subjective Date:: 03/08/20 Subjective:: No chest pain or difficulty with breathing. No reported fever or chills. No vomiting and bowel movement. Reason For Visit: COVID PNEUMONIA Physical Exam Vital Signs: Temp Pulse Resp BP Pulse Ox 97.8 F 81 22 H 102/61 92 03/08/20 11:33 03/08/20 14:00 03/08/20 11:33 03/08/20 11:33 03/08/20 11:33 Intake & Output 03/07/20 03/08/20 03/09/20 06:59 06:59 06:59 Intake Total 237 Output Total 125 Balance -125 237 Weight 59 kg 58.6 kg Physical Exam: General appearance: PRESENT: no acute distress Head exam: PRESENT: atraumatic, normocephalic Eye exam: PRESENT: conjunctiva pink, ABSENT: pallor, scleral icterus Respiratory exam: PRESENT: clear to auscultation ken, decreased breath sounds - at lung bases Cardiovascular exam: PRESENT: RRR, +S1, +S2. ABSENT: diastolic murmur, systolic murmur Extremities exam: ABSENT: pedal edema Neurological exam: PRESENT: alert, awake Skin exam: PRESENT: dry, warm Results Laboratory Results: 03/08/20 05:51 03/08/20 05:51 03/08/20 03/08/20 05:51 05:51 WBC 12.4 H RBC 4.93 Hgb 12.3 L Hct 38.4 MCV 78 L MCH 25.0 L MCHC 32.1 RDW 14.8 H Plt Count 279 Seg Neutrophils % Not Reportable Sodium 139.7 Potassium 5.2 H Chloride 113 H Carbon Dioxide 17 L Anion Gap 10 BUN 45 H Creatinine 1.34 H Est GFR ( Amer) > 60 Glucose 144 H Calcium 9.5 Total Bilirubin 1.1 AST 45 Alkaline Phosphatase 61 Total Protein 6.2 L Albumin 3.0 L 02/24/20 02/24/20 02/24/20 12:18 12:18 21:10 Creatine Kinase 577 H 462 H CK-MB (CK-2) Troponin I 0.190 02/24/20 02/25/20 02/25/20 21:10 00:29 00:29 Creatine Kinase 403 H CK-MB (CK-2) 3.49 3.43 Troponin I 0.081 0.057 02/25/20 02/25/20 08:34 08:34 Creatine Kinase 360 H CK-MB (CK-2) 4.32 Troponin I 0.045 Impressions: Chest X-Ray 02/29/20 00:00 IMPRESSION: Diffuse bilateral alveolar and interstitial infiltrates are present, progressive since 12/24/2020. No gross pneumothorax or pleural effusion. Assessment & Plan - Diagnosis (1) Pneumonia due to COVID-19 virus Is this a current diagnosis for this admission?: Yes (2) Acute hypoxemic respiratory failure Is this a current diagnosis for this admission?: Yes (3) Acute renal failure (ARF) Qualifiers: Acute renal failure type: unspecified Qualified Code(s): N17.9 - Acute kidney failure, unspecified Is this a current diagnosis for this admission?: Yes (4) Constipation Qualifiers: Constipation type: slow transit constipation Qualified Code(s): K59.01 - Slow transit constipation Is this a current diagnosis for this admission?: Yes (5) Paroxysmal A-fib Is this a current diagnosis for this admission?: Yes (6) HTN (hypertension) Qualifiers: Hypertension type: essential hypertension Qualified Code(s): I10 - Essential (primary) hypertension Is this a current diagnosis for this admission?: Yes - Time Time Spent with patient: 25-34 minutes Level of Care: IMCU Medications reviewed and adjusted accordingly: Yes Anticipated discharge: Home with Homehealth, SNF Anticipated DC Timeframe: within 72 hours - Inpatient Certification Based on my medical assessment, after consideration of the patient's comorbidities, presenting symptoms, or acuity I expect that the services needed warrant INPATIENT care.: Yes I certify that my determination is in accordance with my understanding of Medicare's requirements for reasonable and necessary INPATIENT services [42 CFR 412.3e].: Yes Medical Necessity: Significant Comorbidiites Make Outpatient Treatment Too Risky, Need Close Monitoring Due to Risk of Patient Decompensation, Need For Continuous Telemetry Monitoring, Risk of Complication if Not Cared For in Hospital, Risk of Diagnosis Which Will Require Inpatient Eval/Care/Monitoring Post Hospital Care: D/C Front Office Assistant Documentation, D/C or Transfer Summary - Plan Summary Plan Summary: Continue current medication management.
[2020-03-08] MEDS ORDERED: BISACODYL 10 MG SUPP.RECT PR ONE (17:10)
[2020-03-09 06:00] LABS: ABSOLUTE LYMPHOCYTES (AUTO) 0.6 10^3/uL (0.5-4.7); ABSOLUTE MONOCYTES (AUTO) 0.6 10^3/uL (0.1-1.4); ABSOLUTE NEUT (AUTO) 9.3 10^3/uL (1.7-8.2); BASOPHILS % (AUTO) 0.2 % (0-2); EOSINOPHILS % (AUTO) 0.1 % (0-6); HEMATOCRIT 34.9 % (37.9-51.0); HEMOGLOBIN 11.7 g/dL (13.5-17.0); MEAN CORPUSCULAR HEMOGLOBIN 26.5 pg (27.0-33.4); MEAN CORPUSCULAR HGB CONC 33.4 g/dL (32.0-36.0); MEAN CORPUSCULAR VOLUME 79 fl (80-97); MONOCYTES % (AUTO) 5.8 % (3-13); PLATELET COUNT 228 10^3/uL (150-450); RED CELL DISTRIBUTION WIDTH 14.9 % (11.5-14.0); SEGMENTED NEUTROPHILS % (AUTO) 87.9 % (42-78); TOTAL CELLS COUNTED % (AUTO) 100 %; WHITE BLOOD COUNT 10.5 10^3/uL (4.0-10.5)
[2020-03-09 06:27] LABS: ALBUMIN 2.7 g/dL (3.5-5.0); ALKALINE PHOSPHATASE 63 U/L (38-126); ANION GAP 10 (5-19); ASPARTATE AMINO TRANSFERASE 30 U/L (17-59); BILIRUBIN,DIRECT 0.2 mg/dL (0.0-0.4); BILIRUBIN,TOTAL 0.9 mg/dL (0.2-1.3); BLOOD UREA NITROGEN 42 mg/dL (7-20); CALCIUM 9.3 mg/dL (8.4-10.2); CARBON DIOXIDE 19 mmol/L (22-30); CHLORIDE 112 mmol/L (98-107); GLUCOSE 138 mg/dL (75-110); POTASSIUM 4.8 mmol/L (3.6-5.0); TOTAL PROTEIN 5.5 g/dL (6.3-8.2)
[2020-03-09] MEDS: INSULIN LISPRO 100 UNIT/ML 3 ML VIAL SUBCUT SCH ×3 (08:22→17:49)
[2020-03-09] MEDS: DOCUSATE SODIUM 100 MG CAPSULE PO SCH (09:47)
[2020-03-09] MEDS: AMLODIPINE BESYLATE 10 MG TABLET PO SCH (09:47)
[2020-03-09] MEDS: CHOLECALCIFEROL (D3) 1,000 UNIT (25 MCG) TABLET PO SCH (09:47)
[2020-03-09] MEDS: APIXABAN 5 MG TABLET PO SCH ×2 (09:47→17:50)
[2020-03-09] MEDS: ASCORBIC ACID 500 MG TABLET PO SCH ×2 (09:47→17:50)
[2020-03-09] MEDS: SPIRONOLACTONE 25 MG TABLET PO SCH (09:47)
[2020-03-09] MEDS: MONTELUKAST SODIUM 10 MG TABLET PO SCH (09:48)
[2020-03-09] MEDS: ZINC SULFATE 220 MG CAPSULE PO SCH (09:48)
[2020-03-09] MEDS: METOPROLOL SUCCINATE 50 MG TAB.SR.24H PO SCH (09:49)
[2020-03-09 17:45] VITALS: BP 132/64
--- NOTE | 2020-03-09 19:29 | PDOC DISCHARGE SUMMARY ---
Impression - Admit/DC Date/PCP Admission Date/Primary Care Provider: 02/24/20 14:50 KISHA LAZAR MD Discharge Date: 03/09/20 - Discharge Diagnosis (1) Acute hypoxemic respiratory failure Is this a current diagnosis for this admission?: Yes (2) Pneumonia Is this a current diagnosis for this admission?: Yes (3) Hyperosmolar hyperglycemic state (HHS) Is this a current diagnosis for this admission?: Yes (4) Pneumonia due to COVID-19 virus Is this a current diagnosis for this admission?: Yes (5) Acute delirium Is this a current diagnosis for this admission?: Yes - Additional Information Discharge Diet: Diabetic Discharge Activity: Activity As Tolerated, Balance Activity w/Rest Referrals: KISHA LAZAR MD [Primary Care Provider] - 03/23/20 10:00 am Home Medications: RX: Spironolactone [Aldactone] 50 mg PO DAILY 05/11/13 RX: Montelukast Sodium [Singulair] 10 mg PO DAILY 05/18/18 RX: Amlodipine Besylate [Norvasc 10 mg Tablet] 10 mg PO DAILY 02/24/20 RX: Metoprolol Succinate [Toprol Xl 50 mg Tab.sr] 50 mg PO DAILY 02/24/20 RX: Apixaban [Eliquis 5 mg Tablet] 5 mg PO BID tablet 03/09/20 History of Present Illiness History of Present Illness: VERONICA HELM is a 79 year old male, He has a history of paroxysmal atrial fibrillation, sick sinus syndrome status post pacemaker implantation, he had a positive SARS-CoV-2 test last week outpatient in the office, he was started on dexamethasone.He was advised to go to emergency room if he develops shortness of breath, he came to the emergency room today for evaluation of shortness of breath. In the emergency room a chest x-ray was done that demonstrated diffuse bilateral infiltrate, the arterial blood gas that was done demonstrated hypoxemia,ABG on FiO2 5 L, pH 7.45, PO2 33.5, PCO2 39.8, HCO3 26.9.He was also found to have hyperglycemia, serum glucose was over 400 Hospital Course Hospital Course: Patient was admitted for the management of acute hypoxemic respiratory failure due to Covid pneumonia. He was successfully treated with IV remdesivir, IV dexamethasone. He developed severe hyperglycemia due to the steroid, he required insulin drip for the control blood sugar. He has no history of diabetes mellitus. He also had episode of delirium, felt to be due to steroid and also SARS-CoV-2 infection infection.Patient has not required any oxygen supplementation the last 3 days, is less confused, stable for discharge home today. Physical Exam Vital Signs: Temp Pulse Resp BP Pulse Ox 97.5 F 74 17 132/64 H 94 03/09/20 17:43 03/09/20 17:43 03/09/20 17:43 03/09/20 17:43 03/09/20 17:43 Intake & Output 03/08/20 03/09/20 03/10/20 06:59 06:59 06:59 Intake Total 237 111 260 Balance 237 111 260 Weight 58.6 kg 57.5 kg General appearance: PRESENT: no acute distress Eye exam: PRESENT: PERRLA Respiratory exam: PRESENT: clear to auscultation ken Cardiovascular exam: PRESENT: +S1, +S2 GI/Abdominal exam: PRESENT: soft Neurological exam: PRESENT: alert Results Laboratory Results: WBC 10.5 10^3/uL (4.0-10.5) 03/09/20 05:01 RBC 4.40 10^6/uL (4.35-5.55) 03/09/20 05:01 Hgb 11.7 g/dL (13.5-17.0) L 03/09/20 05:01 Hct 34.9 % (37.9-51.0) L 03/09/20 05:01 MCV 79 fl (80-97) L 03/09/20 05:01 MCH 26.5 pg (27.0-33.4) L 03/09/20 05:01 MCHC 33.4 g/dL (32.0-36.0) 03/09/20 05:01 RDW 14.9 % (11.5-14.0) H 03/09/20 05:01 Plt Count 228 10^3/uL (150-450) 03/09/20 05:01 Lymph % (Auto) 6.0 % (13-45) L 03/09/20 05:01 [place] % (Auto) 5.8 % (3-13) 03/09/20 05:01 Eos % (Auto) 0.1 % (0-6) 03/09/20 05:01 Baso % (Auto) 0.2 % (0-2) 03/09/20 05:01 Absolute Neuts (auto) 9.3 10^3/uL (1.7-8.2) H 03/09/20 05:01 Absolute Lymphs (auto) 0.6 10^3/uL (0.5-4.7) 03/09/20 05:01 Absolute Monos (auto) 0.6 10^3/uL (0.1-1.4) 03/09/20 05:01 Absolute Eos (auto) 0.0 10^3/uL (0.0-0.6) 03/09/20 05:01 Absolute Basos (auto) 0.0 10^3/uL (0.0-0.2) 03/09/20 05:01 Total Counted 100 03/08/20 05:51 Seg Neutrophils % 87.9 % (42-78) H 03/09/20 05:01 Seg Neuts % (Manual) 93 % (42-78) H 03/08/20 05:51 Lymphocytes % (Manual) 5 % (13-45) L 03/08/20 05:51 Atypical Lymphs % 1 % (0) 03/06/20 05:11 Monocytes % (Manual) 2 % (3-13) L 03/08/20 05:51 Eosinophils % (Manual) 0 % (0-6) 03/08/20 05:51 Basophils % (Manual) 0 % (0-2) 03/08/20 05:51 Abs Neuts (Manual) 11.5 10^3/uL (1.7-8.2) H 03/08/20 05:51 Abs Lymphs (Manual) 0.6 10^3/uL (0.5-4.7) 03/08/20 05:51 Abs Monocytes (Manual) 0.2 10^3/uL (0.1-1.4) 03/08/20 05:51 Absolute Eos (Manual) 0.0 10^3/uL (0.0-0.6) 03/08/20 05:51 Abs Basophils (Manual) 0.0 10^3/uL (0.0-0.2) 03/08/20 05:51 Nucleated RBCs 1 /100 WBC (0) 02/27/20 05:36 Toxic Granulation 2+ 03/01/20 06:40 Toxic Vacuolation PRESENT 03/01/20 06:40 Clumped Platelets PRESENT 03/08/20 05:51 Large Platelets PRESENT 03/03/20 05:07 Platelet Comment ADEQUATE 03/08/20 05:51 Polychromasia SLIGHT 03/03/20 05:07 Hypochromasia SLIGHT 03/08/20 05:51 Poikilocytosis 1+ 03/06/20 05:11 Anisocytosis SLIGHT 03/08/20 05:51 Microcytosis SLIGHT 03/08/20 05:51 Target Cells SLIGHT 03/08/20 05:51 Tear Drop Cells SLIGHT 03/03/20 05:07 Schistocytes SLIGHT 03/03/20 05:07 PT 26.2 SEC (11.4-15.4) H 02/24/20 12:18 PT Cancelled 02/24/20 12:18 INR 2.41 02/24/20 12:18 INR Cancelled 02/24/20 12:18 INR (Anticoag Therapy) Cancelled 02/24/20 12:18 APTT 47.1 SEC (23.5-35.8) H 02/24/20 12:18 Fibrinogen 941 mg/dL (209-497) H 02/24/20 12:18 Fibrinogen Cancelled 02/24/20 12:18 D-Dimer 1.05 ug/mL (0.00-0.50) H 02/24/20 12:18 D-Dimer Cancelled 02/24/20 12:18 Carbonic Acid 1.20 mmol/L (1.05-1.35) 02/24/20 14:53 HCO3/H2CO3 Ratio 22:1 02/24/20 14:53 ABG pH 7.45 (7.35-7.45) 02/24/20 14:53 ABG pCO2 39.8 mmHg (35-45) 02/24/20 14:53 ABG pO2 63.2 mmHg (80-100) L 02/24/20 14:53 ABG HCO3 26.9 mmol/L (20-24) H 02/24/20 14:53 ABG Total CO2 28.1 mmol/L (23-27) H 02/24/20 14:53 ABG O2 Saturation 93.1 % (94-98) L 02/24/20 14:53 ABG Base Excess 2.7 mmol/L 02/24/20 14:53 VBG pH 7.46 (7.30-7.42) H 02/24/20 12:18 VBG pCO2 33.7 mmHg (35-63) L 02/24/20 12:18 VBG HCO3 23.3 mmol/L (20-32) 02/24/20 12:18 VBG Base Excess 0 mmol/L 02/24/20 12:18 FiO2 5L 02/24/20 14:53 Sodium 140.7 mmol/L (137-145) 03/09/20 05:01 Potassium 4.8 mmol/L (3.6-5.0) 03/09/20 05:01 Chloride 112 mmol/L (98-107) H 03/09/20 05:01 Carbon Dioxide 19 mmol/L (22-30) L 03/09/20 05:01 Anion Gap 10 (5-19) 03/09/20 05:01 BUN 42 mg/dL (7-20) H 03/09/20 05:01 Creatinine 1.46 mg/dL (0.52-1.25) H 03/09/20 05:01 Est GFR ( Amer) 56 (>60) L 03/09/20 05:01 Est GFR (Non-Af Amer) Cancelled 03/01/20 06:40 Est GFR (MDRD) Non-Af 46 (>60) L 03/09/20 05:01 Glucose 138 mg/dL (75-110) H 03/09/20 05:01 POC Glucose 142 mg/dL (70-110) H 03/09/20 16:18 Calcium 9.3 mg/dL (8.4-10.2) 03/09/20 05:01 Ferritin 2050.00 ng/mL (17.9-464.0) H 02/24/20 12:18 Total Bilirubin 0.9 mg/dL (0.2-1.3) 03/09/20 05:01 Direct Bilirubin 0.2 mg/dL (0.0-0.4) 03/09/20 05:01 Neonat Total Bilirubin Not Reportable 03/09/20 05:01 Neonat Direct Bilirubin Not Reportable 03/09/20 05:01 Neonat Indirect Bili Not Reportable 03/09/20 05:01 AST 30 U/L (17-59) 03/09/20 05:01 ALT 20 U/L (<50) 03/09/20 05:01 Alkaline Phosphatase 63 U/L (38-126) 03/09/20 05:01 Lactate Dehydrogenase 427 U/L (120-246) H 02/24/20 12:18 Creatine Kinase 360 U/L (55-170) H 02/25/20 08:34 CK-MB (CK-2) 4.32 ng/mL (<4.55) 02/25/20 08:34 Troponin I 0.045 ng/mL 02/25/20 08:34 C-Reactive Protein 295.6 mg/L (<10.0) H 02/24/20 12:18 Total Protein 5.5 g/dL (6.3-8.2) L 03/09/20 05:01 Albumin 2.7 g/dL (3.5-5.0) L 03/09/20 05:01 EGFR Cancelled 03/01/20 06:40 Urine Color YELLOW 02/25/20 00:10 Urine Appearance SLIGHTLY-CLOUDY 02/25/20 00:10 Urine pH 5.0 (5.0-9.0) 02/25/20 00:10 Ur Specific [place] 1.021 02/25/20 00:10 Urine Protein 30 mg/dL (NEGATIVE) H 02/25/20 00:10 Urine Glucose (UA) >=500 mg/dL (NEGATIVE) H 02/25/20 00:10 Urine Ketones NEGATIVE mg/dL (NEGATIVE) 02/25/20 00:10 Urine Blood MODERATE (NEGATIVE) H 02/25/20 00:10 Urine Nitrite NEGATIVE (NEGATIVE) 02/25/20 00:10 Urine Bilirubin NEGATIVE (NEGATIVE) 02/25/20 00:10 Urine Urobilinogen NEGATIVE mg/dL (<2.0) 02/25/20 00:10 Ur Leukocyte Esterase NEGATIVE (NEGATIVE) 02/25/20 00:10 Urine WBC (Auto) 1 /HPF 02/25/20 00:10 Urine RBC (Auto) 0 /HPF 02/25/20 00:10 U Hyaline Cast (Auto) 1 /LPF 02/25/20 00:10 Squamous Epi Cells Auto 1 /HPF 02/25/20 00:10 Urine Ascorbic Acid NEGATIVE (NEGATIVE) 02/25/20 00:10 Influenza A (Rapid) NEGATIVE (NEGATIVE) 02/24/20 14:53 Influenza B (Rapid) NEGATIVE (NEGATIVE) 02/24/20 14:53 Group A Strep Rapid NEGATIVE (NEGATIVE) 02/24/20 14:53 Blood Type Cancelled 02/27/20 16:28 02/24/20 02/24/20 02/25/20 12:18 21:10 00:29 CK-MB (CK-2) 3.49 3.43 Troponin I 0.190 0.081 0.057 02/25/20 08:34 CK-MB (CK-2) 4.32 Troponin I 0.045 Impressions: Chest X-Ray 02/24/20 11:57 IMPRESSION: Bilateral basilar predominant patchy parenchymal opacities and likely small bilateral pleural effusions. Differential considerations include interstitial edema/ volume overload and multifocal pneumonia. Chest X-Ray 02/29/20 00:00 IMPRESSION: Diffuse bilateral alveolar and interstitial infiltrates are present, progressive since 12/24/2020. No gross pneumothorax or pleural effusion. Stroke Is this a Stroke Patient?: No Acute Heart Failure Is this a Heart Failure Patient?: No
== END 2020-03-09 18:13 | disposition home health service (06) | DRG 177 ==
LOC: ER 11:55 → EH 14:50 → 3W 16:43
PROVIDERS: ADMIT Internal Medicine; ATTEND Internal Medicine
PROC: 5A09457 Assistance with Respiratory Ventilation, 24-96 Consecutive Hours, Continuous Positive Airway Pressure (ICD-10-PCS; principal; 2020-02-24)
PROC: XW033E5 Introduction of Remdesivir Anti-infective into Peripheral Vein, Percutaneous Approach, New Technology Group 5 (ICD-10-PCS; 2020-02-24)
DX: U07.1 COVID-19 (principal); J96.01 Acute respiratory failure with hypoxia; J12.81 Pneumonia due to SARS-associated coronavirus; N17.9 Acute kidney failure, unspecified; E87.0 Hyperosmolality and hypernatremia; I50.9 Heart failure, unspecified; I11.0 Hypertensive heart disease with heart failure; R73.9 Hyperglycemia, unspecified; I48.0 Paroxysmal atrial fibrillation; K59.01 Slow transit constipation; Z95.0 Presence of cardiac pacemaker; Z28.21 Immunization not carried out because of patient refusal
CPT/HCPCS: 36415; 71045; 80053; 81001; 82550; 82553; 82728; 82803; 82962; 83615; 84484; 85025; 85379; 85384; 85610; 85730; 86140; 86900; 86901; 87040; 87070; 87804; 87880; 93005; 93010; 94660; 96361; 96374; 99285; J0456; J0696; J1100; J1815; J2060; J3490; J7030; J7050; J7060